=== PATIENT | female | born 1970 | race Caucasian/White ===

== ENCOUNTER 2021-11-27 06:56 | Observation (INO) ==
--- NOTE | 2021-10-26 08:54 | PAT Medication Instructions ---
Medication Instructions Date of Service October 26, 2021 Home Medications apixaban 5 mg tablet (Eliquis) 5 mg PO BID cyanocobalamin (vitamin B-12) 1,000 mcg tablet 1,000 mcg PO QAM hydroxyzine HCl 10 mg tablet 10 mg PO TID PRN lisinopril 10 mg tablet 10 mg PO QAM metoprolol succinate 100 mg tablet,extended release 24 hr 100 mg PO QAM metoprolol succinate 25 mg tablet,extended release 24 hr 25 mg PO QAM omeprazole 40 mg capsule,delayed release 40 mg PO QAM simvastatin 20 mg tablet 20 mg PO HS venlafaxine 150 mg capsule,extended release 24 hr 150 mg PO QAM venlafaxine 37.5 mg tablet,extended release 24 hr 37.5 mg PO QAM ASK your prescriber and surgeon apixaban 5 mg tablet (Eliquis) 5 mg PO BID (in order for spinal anesthesia, Apixaban/Eliquis needs to be stopped 72 hours/3 days before surgery. Please check if okay with doctor that prescribes this to you) DO NOT take the morning of surgery cyanocobalamin (vitamin B-12) 1,000 mcg tablet 1,000 mcg PO QAM hydroxyzine HCl 10 mg tablet 10 mg PO TID PRN lisinopril 10 mg tablet 10 mg PO QAM Take morning of surgery With a small sip of water, OTHERWISE NOTHING TO EAT OR DRINK AFTER MIDNIGHT: metoprolol succinate 100 mg tablet,extended release 24 hr 100 mg PO QAM metoprolol succinate 25 mg tablet,extended release 24 hr 25 mg PO QAM omeprazole 40 mg capsule,delayed release 40 mg PO QAM venlafaxine 150 mg capsule,extended release 24 hr 150 mg PO QAM venlafaxine 37.5 mg tablet,extended release 24 hr 37.5 mg PO QAM Take evening before surgery hydroxyzine HCl 10 mg tablet 10 mg PO TID PRN (if needed) simvastatin 20 mg tablet 20 mg PO HS Other Notes If you have any questions please call us at [phone] or [phone] or [phone] or [phone]
--- NOTE | 2021-10-30 12:19 | Anesthesiology Consultation ---
Date of Service October 30, 2021 Assessment & Plan (1) Encounter for pre-operative examination: - COVID screening: Per assessment on 10/30: No known COVID-19 positive contacts or current COVID-19 related symptoms. Travel screen- returned from travel to [facility] 10/28 (via car with daughter/granddaughter). No large gatherings. Wore mask in public. Preop Covid testing > 2 weeks after return from travel. Surgeon arranging preop COVID testing. Awaiting results. - Eliquis instructions: patient made aware that in order for spinal anesthesia, Eliquis needs to be held 72 hours prior to surgery. Patient voiced und erstanding/will check if okay with prescriber. Chart Review Chart Review: Acceptable Risk for Surgery and Patient seen in Pre Admission Te sting Teaching & Discussion Pre-Anesthesia Teaching/Discussion Notes: Instructed NPO after midnight before surgery,except medications with 15 cc of water. Medication instructions provided according to the PAT guidelines. History Surgery Operation Date: 11/27/21 09:35 Proposed Procedures p Right Total Knee Arthroplasty - Jeffrey Cordon DO Height/Weight Height: 5 ft 4 in Weight: 111.8 kg Allergies Allergy/AdvReac Type Severity Reaction Status Date / Time No Known Allergies Allergy Verified 10/25/21 09:49 Medications Home Medications Medication Instructions Recorded Confirmed Last Taken apixaban 5 mg tablet (Eliquis) 5 mg PO BID 10/25/21 10/25/21 Unknown cyanocobalamin (vitamin B-12) 1,000 mcg PO QAM 10/25/21 10/25/21 Unknown 1,000 mcg tablet hydroxyzine HCl 10 mg tablet 10 mg PO TID PRN 10/25/21 10/25/21 Unknown lisinopril 10 mg tablet 10 mg PO QAM 10/25/21 10/25/21 Unknown metoprolol succinate 100 mg 100 mg PO QA 10/25/21 10/25/21 Unknown tablet,extended release 24 hr metoprolol succinate 25 mg 25 mg PO QA 10/25/21 10/25/21 Unknown tablet,extended release 24 hr omeprazole 40 mg capsule,delayed 40 mg PO QAM 10/25/21 10/25/21 Unknown release simvastatin 20 mg tablet 20 mg PO HS 10/25/21 10/25/21 Unknown venlafaxine 150 mg 150 mg PO QA 10/25/21 10/25/21 Unknown capsule,extended release 24 hr venlafaxine 37.5 mg 37.5 mg PO QAM 10/25/21 10/25/21 Unknown tablet,extended release 24 hr Past Medical History Medical History Anxiety Degenerative disc disease Depression DVT (deep venous thrombosis) LLE (3 years ago), reason for Eliquis, unknown etiology GERD (gastroesophageal reflux disease) Hx of ventricular tachycardia 2009, reason for metoprolol, no current/recent issues Hyperlipidemia Hypertension Morbid obesity Sleep apnea No machine d/t recall Stress incontinence Exercise / Class Metabolic Activity II 4-5 Yardwork/Stairs/Walk up hill (one FS (no CP, no SOB)) Past Family History Family History Uncle Colon cancer Past Surgical History Surgical History History of ankle surgery left History of arthroscopy R/L knees History of cardiac cath 2009 > no stents History of section x3 History of cholecystectomy History of colonoscopy History of hysterectomy History of repair of rotator cuff right History of tonsillectomy History of tooth extraction Hx of fracture of humerus right with repair Past Anesthesia History No Hx of Anesthesia Complications and No Family Hx of Anesthesia Complications History of PONV No Hx of PONV and No Hx of Motion Sickness Social History Smoking Status: Current every day smoker tobacco type: cigarettes Smoking cigarettes per day: 1 PPD x 20+ years Do You Dip or Chew Tobacco: No Hx Alcohol Use: No Hx Substance Use: No substance use type: does not use Review of Systems Patient denies chest pain, shortness of breath, dyspnea on exertion, fever, chills, cough, wheezing, palpitations. Physical Exam Vital Signs VITALS BP 119/78 P 75 TEMP 98.1 SP02 95%RA RESP 16 PHYSICAL Full cervical extension range of motion. Full TMJ range of motion. TMD 4 finger breaths Mallampati Score 3 Dentition: no upper teeth, several missing on lower Lungs: clear throughout to auscultation Cardiac: regular rate and rhythm, no murmurs noted Spine: normal Carotid arteries: negative bruit Extremities: no edema Lab Results Anesthesia Preop Results Results Anesthesia Widget: WBC 9.73 K/uL (4.8-10.8) 10/30/21 Hgb 13.4 g/dL (12.0-16.0) 10/30/21 Hct 40.9 % (37-47) 10/30/21 Plt 325 K/uL (130-400) 10/30/21 Na 138 mmol/L (136-145) 10/30/21 K 3.9 mmol/L (3.5-5.1) 10/30/21 Cl 103 mmol/L (98-107) 10/30/21 CO2 30 mmol/L (21-32) 10/30/21 BUN 9 mg/dl (6-23) 10/30/21 Creat 0.72 mg/dl (0.6-1.2) 10/30/21 Glucose Level 97 mg/dl (70-99(Fasting)) 10/30/21 PT 10.3 Seconds (9.0-12.0) 10/30/21 PTT 27.6 Seconds (21.0-31.0) 10/30/21 INR 1.0 (0.9-1.1) 10/30/21 HA1c 6.4 % (4.5-5.6) H 10/30/21 Urine Color Yellow 10/30/21 Urine Appearance Clear (Clear) 10/30/21 Urine pH 7.0 (4.5-7.5) 10/30/21 Urine Specific [place] 1.011 (1.000-1.030) 10/30/21 Urine Protein Negative (Negative) 10/30/21 Urine Glucose (UA) Negative (Negative) 10/30/21 Urine Ketones Negative (Negative) 10/30/21 Urine Blood Negative (Negative) 10/30/21 Urine Nitrite Negative (Negative) 10/30/21 Urine Bilirubin Negative (Negative) 10/30/21 Urine Urobilinogen Negative (Negative) 10/30/21 Urine Leukocyte Esterase Negative (Negative) 10/30/21 Blood Type O Positive 10/30/21 Antibody Screen NEGATIVE 10/30/21 Testing Electrocardiogram Date: 10/30/21 Findings: + NSR @ (66) Chest X-Ray Date: 10/30/21 FINDINGS: Frontal and lateral radiographs of the chest demonstrate the cardiomediastinal silhouette to be within normal limits. There is a decreased inspiratory effort with elevation of the hemidiaphragms and crowding of the bronchovascular markings at the lung bases and centrally. The lungs are clear of alveolar opacities. There is no evidence for effusion bilaterally. There is no evidence for vascular congestion. There is no acute osseous pathology. IMPRESSION: There is a decreased inspiratory effort with otherwise no acute chest disease.
--- NOTE | 2021-11-06 08:04 | History & Physical Report ---
Date of Service November 06, 2021 date of surgery: 11/27/21 Procedure: Right Total Knee Arthroplasty Surgeon: Jeffrey Cordon Assessment & Plan (1) Arthritis of right knee: Plan: Further care discussed with patient and at this point in time has failed conservative measures and would like to proceed with a right total knee replacement. Plan on discharge will be home with home health physical therapy. DVT prophylaxiswith TEDs, SCDs and will resume Eliquis postop. Patient will have follow up appointment in our office two weeks post op for staple/suture removal and re-evaluation. Patient otherwise has no other questions or concerns. The risks and benefits have been discussed including, but not limited to, risk of infection, nerve injury, stiffness, loss of motion, failure to improve, etc. Reasonable outcomes and options of treatment were discussed. An explanation of appropriate alternatives to the procedure that may be advantageous were discussed and their risks and benefits, as well as the risks and benefits of not proceeding with treatment. I offered to answer any additional inquiries concerning the treatment involved. All the patient's questions were answered. The patient is agreeable, understanding of the treatment plan and alternatives, and wishes to proceed with the treatment plan. History of Present Illness Chief Complaint: Right knee pain Primary Care Provider: NO PCP Kayla is a 51 year old who complains of right knee pain, presents for pre-op evaluation prior to a right total knee replacement by Dr Cordon at [facility]. she complains of pain, decreased range of motion, instability and stiffness in her right knee. Currently the patient states that the symptoms are moderate-severe and is described as aching, sharp and throbbing. Her symptoms are aggravated by ascending stairs, daily activities, first steps while awake walking. Unable to take NSAIDs since she is on Eliquis. she has been treated with previous cortisone and visco injections in the past without much relief. she has also failed previous trial of physical therapy. Allergies Allergy/AdvReac Type Severity Reaction Status Date / Time No Known Allergies Allergy Verified 10/25/21 09:49 Home Medications Medication Instructions Recorded Confirmed Type apixaban 5 mg tablet (Eliquis) 5 mg PO BID 10/25/21 10/25/21 History cyanocobalamin (vitamin B-12) 1,000 mcg PO QAM 10/25/21 10/25/21 History 1,000 mcg tablet hydroxyzine HCl 10 mg tablet 10 mg PO TID PRN 10/25/21 10/25/21 History lisinopril 10 mg tablet 10 mg PO QAM 10/25/21 10/25/21 History metoprolol succinate 100 mg 100 mg PO QAM 10/25/21 10/25/21 History tablet,extended release 24 hr metoprolol succinate 25 mg 25 mg PO QAM 10/25/21 10/25/21 History tablet,extended release 24 hr omeprazole 40 mg capsule,delayed 40 mg PO QAM 10/25/21 10/25/21 History release simvastatin 20 mg tablet 20 mg PO HS 10/25/21 10/25/21 History venlafaxine 150 mg 150 mg PO QAM 10/25/21 10/25/21 History capsule,extended release 24 hr venlafaxine 37.5 mg 37.5 mg PO QAM 10/25/21 10/25/21 History tablet,extended release 24 hr Past Med/Surg History Medical History Anxiety Degenerative disc disease Depression DVT (deep venous thrombosis) LLE (3 years ago), reason for Eliquis, unknown etiology GERD (gastroesophageal reflux disease) Hx of ventricular tachycardia 2009, reason for metoprolol, no current/recent issues Hyperlipidemia Hypertension Morbid obesity Sleep apnea No machine d/t recall Stress incontinence Surgical History History of ankle surgery left History of arthroscopy R/L knees History of cardiac cath 2010 > no stents History of section x3 History of cholecystectomy History of colonoscopy History of hysterectomy History of repair of rotator cuff right History of tonsillectomy History of tooth extraction Hx of fracture of humerus right with repair Family History Uncle Colon cancer Social History Smoking Status: Current every day smoker Cigarettes Per Day: 1 PPD x 20+ years; Second Hand Exposure: No; Hx Alcohol Use: No Hx Substance Use: No Preferred Language: Telugu Communication Ability: Effective Marketing Analytics Specialist Required: No Beliefs That Will Affect Care: None Current Living Situation: Spouse Feels Safe at Home: Yes Assistive Devices: None Review of Systems Review of Systems: All systems reviewed & are unremarkable except as noted in HPI & below Constitutional: no fever, no chills and no sweats Respiratory: no cough and no dyspnea Cardiovascular: no chest pain, no dyspnea and no orthopnea Gastrointestinal: no abdominal pain, no nausea and no vomiting Musculoskeletal: as per Subjective / HPI Physical Exam Physical Exam: HT: 5ft 4in WT: 111.8kg Constitutional: WD/WN, vitals as above no acute distress Respiratory: normal respiratory effort, lungs clear to auscultation no respiratory distress, no labored breathing and does not use accessory muscles Cardiovascular: RRR, no murmur, no edema Gastrointestinal (Abdomen): normal bowel sounds, soft, nontender, no hepatosplenomegaly Musculoskeletal: Knee: + knee abnormal to inspection (Right Knee- ), + effusion (+1 effusion), + limited ROM of knee (ROM 0/3/110), + knee ROM with crepitation, + joint line tenderness (medial joint line) and + Ronald's sign positive; no deformity, no skin erythema, no ecchymosis, no valgus laxity, no varus laxity, anterior drawer test negative, Nelson's sign negative and pivot shift test negative Results & Data Results & Data ([facility]) Diagnostic Findings Right Knee X-ray: Right knee series showing degenerative changes to the right knee, narrowing of the joint spaces with patellar spurring noted, findings showing joint space narrowing, osteophyte formation and subchondral sclerosis noted. no acute bony pathology noted.
[~2021-11-27 06:56] MED LIST: ACETAMINOPHEN 500 MG TAB PO SCH; BUPIVACAINE 0.5 % 5 MG/1 ML PF 10ML VIAL ONE; CeleBREX 200 MG CAP PO SCH; FAMOTIDINE 20 MG TAB PO SCH; GABAPENTIN 900 MG DOSE PO SCH; LR 500ML BOLUS, THEN 15ML/HR IV SCH; METOCLOPRAMIDE HCL 10 MG TABLET PO SCH; ROPIVACAINE 0.5% 5 MG/ML 30 ML VIAL ONE; ROPIVACAINE 0.5% HCL/PF 150 MG, BUPIVACAINE 0.75% MPF 20 ML, EPINEPHrine 30MG/30ML (OR ... INFIL SCH; TRANEXAMIC ACID 1,000 MG **IV Intra-op IV SCH; TRANEXAMIC ACID 1,000 MG **IV Pre-op IV SCH; ceFAZolin 2000MG 2,000 MG/15 ML SYR IV SCH; dexAMETHasone 4 MG TAB PO SCH
[2021-11-27] MEDS ORDERED: MIDAZOLAM HCL 1 MG/ML 2ML VIAL ONE (07:51)
[2021-11-27] MEDS ORDERED: PROPOFOL IV EMULSION 10 MG/ML 20 ML VIAL IV ONE ×4 (07:51→10:27)
[2021-11-27] MEDS ORDERED: fentaNYL citrate 100 MCG/2 ML VIAL ONE (07:51)
--- NOTE | 2021-11-27 09:07 | History & Physical Bridge Note ---
Date of Service November 27, 2021 History & Physical Bridge Note I have examined the patient, reviewed the History & Physical and in the interval since the performance of the History & Physical I have noted the following changes of clinical significance: no changes noted
[2021-11-27] MEDS ORDERED: KETOROLAC 30 MG/ML VIAL IV PRN (09:39)
[2021-11-27] MEDS ORDERED: ATROPINE SULFATE 0.1 MG/ML 10ML SYR IV PRN (09:39)
[2021-11-27] MEDS ORDERED: ePHEDrine sulfate 50 MG/ML AMP IV PRN (09:39)
[2021-11-27] MEDS ORDERED: ONDANSETRON INJ 2 MG/ML 2 ML VIAL IV PRN ×2 (09:39→13:26)
[2021-11-27] MEDS ORDERED: HYDROmorphone INJ 1 MG/ML SYRINGE IV PRN ×2 (09:39→13:26)
[2021-11-27] MEDS ORDERED: ORTHO JOINT ANESTHETIC ONE (10:05)
[2021-11-27] MEDS ORDERED: PHENYLEPHRINE HCL 10 MG/ML VIAL ONE (10:38)
--- NOTE | 2021-11-27 11:22 | Operative Report ---
Post Operative Report Pre & Post Diagnosis Operation Date: 11/27/21 09:35 Pre-Op Diagnosis: Arthritis of right knee Severe DJD right knee Severe DJD right knee Postop severe DJD right knee I identified the patient and participated in the time-out.: Yes Procedure Operation Date: 11/27/21 09:35 Actual Procedures p Right Total Knee Arthroplasty(Right) utilizing Na Biomet persona TKA size femur 8 narrow tibia D polyten patella 28 oval Jeffrey Cordon DO Surgeon Jeffrey Cordon DO Box Bender CESAR Loving Estimated Blood Loss 5 Findings Consistent with Post-Op Diagnosis Patient presents with severe end-stage tricompartmental degenerative joint disease right knee for right total knee arthroplasty patient's failed times a conservative management clinic physical therapy anti-inflammatories relative rest activity modification corticosteroid injection viscosupplementation the above intraoperative findings were noted severe end-stage DJD with varus alignment subchondral cystic changes marginal osteophytes Specimens Bone and cartilage Drains Medium bore Hemovac Anesthesia Type MAC Spinal Regional Complications none Disposition Accompanied Patient To Recovery: No Disposition: Recovery Room Indications Patient presents for total knee arthroplasty after failed attempted conservative management clinic physical therapy anti-inflammatories relative rest activity modification corticosteroid injection viscosupplementation Description of Procedure After proper prepping and draping of the Right lower extremity anterior midline incision was made over the region of the extensor extensor mechanism after meticulous hemostasis was obtained and maintained in subcutaneous tissues a medial parapatellar incision was made The patella was subluxed lateralward the medial lateral gutter were cleaned from any hypertrophic synovitis and scar tissue of the distal femoral block was placed and the distal femoral osteotomy cut was made subsequently the chamfers anterior and posterior osteotomy cuts were made utilizing the 4-in-1 block the tibia was subsequently subluxed anteriorward medial and ateral meniscal remnants were excised in their entirety remnants of the anterior and posterior cruciate ligaments were excised in their entirety excellent exposure of the proximal tibia was obtained the tibial osteotomy guide was placed on the proximal tibial osteotomy cut was made once again the knee was irrigated with copious amounts of sterile saline solution the patella was subsequently everted lateralward thickened scar tissue around the patella was removed the patella was subsequently cut utilizing a freehand technique and was drilled prepared for final preparation and placement of patella socially flexion-extension gaps were checked and the equal and symmetric trials were placed to the appropriate femoral and tibial trials with poly-spacer being placed for equal flexion and extension gaps and full range of motion including extension to 0 and flexion to 140 the trial components after having been taken to recovery range of motion was subsequently removed meticulous hemostasis was obtained and maintained subsequently a knee block injection of joint cocktail including ropivacaine 0.5% 150 mg. Bupivacaine 0.5% epinephrine 1-200,030 mL's toradol 30 mg dexamethasone 4 mg ketamine 10 mg clonidine 100 micrograms normal saline solution 30 mg was infiltrated into the soft tissues of the posterior knee medial lateral gutters and periosteal synovium special attention was paid to protect neurovascular structures at all times subsequently trial components having been removed the knee was irrigated with sterile saline solution. debris was removed the proximal tibia was subsequently prepared and was made ready for the placement of the tibial component tibial component was also cemented and tamped into position the femoral component was subsequently placed and cemented in the position the patellar component was subsequently cemented in position because hemostasis once again obtained and maintained wound having been thoroughly irrigated with debridement and debridement lavage was performed as well as a medial parapatellar incision closed with #1 Vicryl in interrupted fashion subcutaneous was closed with #2 Vicryl skin was closed with skin clips. PA-C was necessary for prepping and drapping as well as wound closure of deep fascia Sub cutaneous tissue and skin and was necessary for the case. A sterile compressive dressing was placed patient was taken to recovery in stable condition of report dictated by Bravo I attest to the content of the Intraoperative Record and any orders documented therein. Any exceptions are noted below.Due to the complex nature of the proced ure, the entire surgery was performed with the operational assistance of CESAR Loving. The outreach assistant, under direct supervision, was involved in the actual performance of all aspects of the surgical procedure including hemostasis, tissue retraction and incision, instrument management, patient positioning, and wound closure. I attest to the content of the Intraoperative Record and any orders documented therein. Any exceptions are noted below.
--- NOTE | 2021-11-27 12:27 | XRay Report ---
XR knee RT 1 or 2V routine CLINICAL HISTORY: Surgical Post Op TECHNIQUE: 2 views of the right knee were obtained. Comparison: None available at the time of this dictation. FINDINGS: Postoperative changes are seen of placement of total knee arthroplasty. Soft tissue swelling and subc utaneous emphysema are seen. IMPRESSION: Expected postoperative appearance status post placement of total knee arthroplasty. ACT 112: Negative or not required by law. Electronically signed by: Fredrick Hollins M.D. 11/27/2021 12:26 PM
[2021-11-27] MEDS ORDERED: hydrOXYzine HCl 10 MG TAB PO PRN (13:26)
[2021-11-27] MEDS ORDERED: diphenhydrAMINE Capsule 25 MG CAP PO PRN (13:26)
[2021-11-27] MEDS ORDERED: MAGNESIUM HYDROXIDE SUSP 30 ML UDC PO PRN (13:26)
[2021-11-27] MEDS ORDERED: bisacodyL 10 MG SUPP PR PRN (13:26)
[2021-11-27] MEDS ORDERED: NALOXONE HCL 0.4 MG/1 ML VIAL/CARP IV PRN (13:26)
[2021-11-27] MEDS ORDERED: METOCLOPRAMIDE HCL INJ 5 MG/ML 2 ML VIAL IV PRN (13:26)
--- NOTE | 2021-11-27 14:22 | Anesthesiology Progress Note ---
Date of Service November 27, 2021 Anesthesia Post Procedure Vital Signs Vital Signs: Temp Pulse Pulse Resp BP Pulse Ox 11/27/21 14:13 75 16 105/71 94 11/27/21 13:10 36.5 C 68 16 101/67 97 11/27/21 12:50 36.4 C L 68 20 107/55 L 98 11/27/21 12:35 69 15 106/66 96 11/27/21 12:25 36.2 C L 67 15 104/60 98 11/27/21 12:15 62 14 102/63 100 11/27/21 12:05 61 15 108/77 100 11/27/21 11:56 36 C L 60 14 114/72 100 11/27/21 07:17 37.1 C 66 18 153/80 H 97 Pain Intensity Right Knee: Pain Intensity: 3 Transfer of Care Handoff Completed per policy Notes Mental Status: alert / awake / arousable Patient Amnestic to Procedure: Yes Nausea / Vomiting: adequately controlled Pain: adequately controlled Airway Patency, RR, SpO2: stable & adequate BP & HR: stable & adequate Hydration State: stable & adequate Neuraxial Anesthesia: was administered and sensory block is resolving Anesthetic Complications: no major complications apparent
[2021-11-27] MEDS: ACETAMINOPHEN 500 MG TAB PO SCH ×2 (15:10→21:38)
[2021-11-27] MEDS: ceFAZolin 2000MG 2,000 MG/15 ML SYR IV SCH (17:56)
[2021-11-27] MEDS: SODIUM CHLORIDE 0.9% 1000ML 1,000 ML IV SCH (17:57)
[2021-11-27] MEDS: oxyCODONE HCL IR 5 MG TAB (IMMEDIATE RELEASE) PO PRN (19:23)
[2021-11-27] MEDS: SIMVASTATIN 20 MG TAB PO SCH (20:44)
[2021-11-27] MEDS: SENNA 8.6 MG TAB PO SCH (20:44)
[2021-11-27] MEDS: DOCUSATE SODIUM 100 MG CAP PO SCH (20:44)
[2021-11-28] MEDS: ceFAZolin 2000MG 2,000 MG/15 ML SYR IV SCH (01:29)
[2021-11-28] MEDS: oxyCODONE HCL IR 5 MG TAB (IMMEDIATE RELEASE) PO PRN ×4 (01:37→21:41)
[2021-11-28] MEDS: SODIUM CHLORIDE 0.9% 1000ML 1,000 ML IV SCH (02:43)
[2021-11-28] MEDS: ACETAMINOPHEN 500 MG TAB PO SCH ×3 (05:45→21:41)
[2021-11-28 06:53] LABS: Hematocrit (blood only) 36.4 % (37-47); Mean Corpuscular Hemoglobin 27.1 pg (25-34); Mean Corpuscular Volume 82.2 fL (80-100); Mean Platelet Volume 10.1 fL (7.4-10.4); Platelet Count 303 K/uL (130-400); RDW Standard Deviation 42.1 fL (36.4-46.3); Red Blood Count 4.43 M/uL (4.2-5.4); White Blood Count 15.26 K/uL (4.8-10.8)
[2021-11-28 07:16] LABS: BUN Creatinine Ratio 14.9 (10-20); Calcium 8.9 mg/dl (8.5-10.1); Creatinine Clr Calc Pharmacy 106.6 ml/min; Est GFR (African American) 107.2 ml/min; Est GFR (Non-African American) 92.5 ml/min; Potassium 4.2 mmol/L (3.5-5.1)
[2021-11-28] MEDS: VENLAFAXINE HCL XR 37.5 MG CAPXR PO SCH (08:29)
[2021-11-28] MEDS: METOPROLOL SUCC 50MG EXT REL TAB PO SCH (08:29)
[2021-11-28] MEDS: VENLAFAXINE HCL XR 150 MG CAPXR PO SCH (08:29)
[2021-11-28] MEDS: MULTIVITAMIN TAB PO SCH (08:29)
[2021-11-28] MEDS: DOCUSATE SODIUM 100 MG CAP PO SCH ×2 (08:30→21:41)
[2021-11-28] MEDS: CYANOCOBALAMIN (B-12) 500 MCG TABLET PO SCH (08:30)
[2021-11-28] MEDS: APIXABAN 5 MG TABLET PO SCH ×2 (08:30→21:42)
[2021-11-28] MEDS: lisinopril 10 MG TAB PO SCH ×2 (08:30→11:27)
[2021-11-28] MEDS: METOPROLOL SUCC 25MG EXT REL TAB PO SCH (08:31)
--- NOTE | 2021-11-28 08:48 | Orthopedic Progress Note ---
Date of Service November 28, 2021 Assessment & Plan (1) Arthritis of right knee: Plan: Postop day 1 status post right total knee arthroplasty PT/OT protocols. Weightbearing as tolerated. DVT prophylaxis-apixaban p.o. twice daily, SCDs, JAIRO nguyen. Pain management as written. DC planning-patient is planning for home health services upon discharge. We will plan to recheck the patient later this morning to see how her physical therapy went. Possible discharge to home today. Admission and Anticipated Discharge Date Admission Date: November 27, 2021 Subjective Postop day 1 Patient sitting up in her bed eating breakfast. States she is having pain off and on but tolerating well. No other complaints. Physical Exam Physical Exam: Dressings are clean, dry, and intact. Calves are soft and nontender. Neurovascular is intact. Toes are mobile. She has good dorsiflexion and plantarflexion of the right foot. Hemovac drainage was 60 mL from the previous shift. Results & Data ([facility]) Vital Signs (Past 12 Hours) Vital Signs Temp Pulse Resp BP Pulse Ox 11/28/21 06:02 36.6 C 62 18 101/62 98 11/28/21 03:54 36.4 C L 63 16 96/62 L 96 11/27/21 22:05 37.1 C 64 16 96/63 L 95 Laboratory Results Laboratory Results WBC 15.26 K/uL (4.8-10.8) H 11/28/21 06:24 RBC 4.43 M/uL (4.2-5.4) 11/28/21 06:24 Hgb 12.0 g/dL (12.0-16.0) 11/28/21 06:24 Hct 36.4 % (37-47) L 11/28/21 06:24 MCV 82.2 fL (80-100) 11/28/21 06:24 MCH 27.1 pg (25-34) 11/28/21 06:24 MCHC 33.0 g/dL (32-36) 11/28/21 06:24 RDW Std Deviation 42.1 fL (36.4-46.3) 11/28/21 06:24 RDW Coeff of Ernesto 14.0 % (11.5-14.5) 11/28/21 06:24 Plt Count 303 K/uL (130-400) 11/28/21 06:24 MPV 10.1 fL (7.4-10.4) 11/28/21 06:24 Sodium 137 mmol/L (136-145) 11/28/21 06:24 Potassium 4.2 mmol/L (3.5-5.1) 11/28/21 06:24 Chloride 105 mmol/L (98-107) 11/28/21 06:24 Carbon Dioxide 27 mmol/L (21-32) 11/28/21 06:24 Anion Gap 5 (3-11) 11/28/21 06:24 BUN 11 mg/dl (6-23) 11/28/21 06:24 Creatinine 0.74 mg/dl (0.6-1.2) 11/28/21 06:24 Est Cr Clr Drug Dosing 106.6 ml/min 11/28/21 06:24 Est GFR ( Amer) 107.2 ml/min 11/28/21 06:24 Est GFR (Non-Af Amer) 92.5 ml/min 11/28/21 06:24 BUN/Creatinine Ratio 14.9 (10-20) 11/28/21 06:24 Glucose 131 mg/dl (70-99(Fasting)) H 11/28/21 06:24 Calcium 8.9 mg/dl (8.5-10.1) 11/28/21 06:24 SARS-CoV-2, RNA, NAAT NEGATIVE (NEGATIVE) 11/27/21 06:13 Impressions Knee X-Ray 11/27/21 12:00 XR knee RT 1 or 2V routine CLINICAL HISTORY: Surgical Post Op TECHNIQUE: 2 views of the right knee were obtained. Comparison: None available at the time of this dictation. FINDINGS: Postoperative changes are seen of placement of total knee arthroplasty. Soft tissue swelling and subcutaneous emphysema are seen. IMPRESSION: Expected postoperative appearance status post placement of total knee arthroplasty. ACT 112: Negative or not required by law. Electronically signed by: Fredrick Hollins M.D. 11/27/2021 12:26 PM
[2021-11-28] MEDS ORDERED: KETOROLAC 30 MG/ML VIAL IV SCH (12:00)
[2021-11-28] MEDS: KETOROLAC TROMETHAMINE 15 MG/ML VIAL IV SCH (18:04)
[2021-11-28] MEDS: SENNA 8.6 MG TAB PO SCH (21:41)
[2021-11-28] MEDS: SIMVASTATIN 20 MG TAB PO SCH (21:42)
[2021-11-29] MEDS: KETOROLAC TROMETHAMINE 15 MG/ML VIAL IV SCH ×3 (00:56→13:05)
[2021-11-29] MEDS: oxyCODONE HCL IR 5 MG TAB (IMMEDIATE RELEASE) PO PRN ×2 (04:42→10:15)
[2021-11-29] MEDS: ACETAMINOPHEN 500 MG TAB PO SCH (05:26)
[2021-11-29] MEDS: METOPROLOL SUCC 50MG EXT REL TAB PO SCH (07:44)
[2021-11-29] MEDS: METOPROLOL SUCC 25MG EXT REL TAB PO SCH (07:45)
[2021-11-29] MEDS: VENLAFAXINE HCL XR 150 MG CAPXR PO SCH (07:50)
[2021-11-29] MEDS: CYANOCOBALAMIN (B-12) 500 MCG TABLET PO SCH (07:50)
[2021-11-29] MEDS: DOCUSATE SODIUM 100 MG CAP PO SCH (07:50)
[2021-11-29] MEDS: MULTIVITAMIN TAB PO SCH (07:50)
[2021-11-29] MEDS: APIXABAN 5 MG TABLET PO SCH (07:51)
[2021-11-29] MEDS: lisinopril 10 MG TAB PO SCH (07:51)
[2021-11-29] MEDS: VENLAFAXINE HCL XR 37.5 MG CAPXR PO SCH (07:51)
--- NOTE | 2021-11-29 07:53 | Orthopedic Progress Note ---
Date of Service November 29, 2021 Assessment & Plan (1) Arthritis of right knee: Plan: Postop day 2 status post right total knee arthroplasty PT/OT protocols. Weightbearing as tolerated. DVT prophylaxis-apixaban p.o. twice daily, SCDs, JAIRO nguyen. Pain management as written. DC planning-patient is planning for home health services upon discharge. Plan for discharge to home today. Admission and Anticipated Discharge Date Admission Date: November 28, 2021 Subjective Postop day 2 Patient sleeping upon entering room. Easily awoken. States she had a much better night. She was able to sleep through the night. Her pain control is much better today. Overall she is feeling much better. She is hoping to go home today. Physical Exam Physical Exam: Jasmeet dressing is clean, dry, and intact. Neurovascular is intact. Toes are mobile. Calves are soft and nontender. Results & Data ([facility]) Vital Signs (Past 12 Hours) Vital Signs Temp Pulse Resp BP Pulse Ox 11/29/21 07:42 36.6 C 53 L 16 122/74 93 11/28/21 23:17 36.6 C 60 18 112/75 97
--- NOTE | 2021-11-29 12:28 | Discharge Summary ---
Date of Service date of discharge: November 29, 2021 date of admission: 11/27/21 Admission HPI Per Admitting Provider Kayla is a 51 year old who complains of right knee pain, presents for pre-op evaluation prior to a right total knee replacement by Dr Cordon at [facility]. she complains of pain, decreased range of motion, instability and stiffness in her right knee. Currently the patient states that the symptoms are moderate-severe and is described as aching, sharp and throbbing. Her symptoms are aggravated by ascending stairs, daily activities, first steps while awake walking. Unable to take NSAIDs since she is on Eliquis. she has been treated with previous cortisone and visco injections in the past without much relief. she has also failed previous trial of physical therapy. Principal Diagnosis right knee arthritis Discharge Exam Vital Signs Temp Pulse Resp BP Pulse Ox 11/29/21 07:42 36.6 C 53 L 16 122/74 93 11/28/21 23:17 36.6 C 60 18 112/75 97 11/28/21 15:28 36.9 C 68 18 106/70 97 11/28/21 13:27 98 Intake and Output 11/28/21 11/29/21 11/29/21 22:59 06:59 14:59 Intake Total 720 / 1440 Output Total 30 / 580 50 / 580 Balance 690 / 860 -50 / 860 Intake: Oral 720 / 1440 Output: Drain Output 30 / 180 50 / 180 Right Knee Hemovac 30 / 180 50 / 180 Other: # Unmeasured Voids 2 1 Musculoskeletal right knee: NVDI, calf SNT, negative navneet sign. DP palpable, able to wiggle toes/ankle movement without difficulty. PRANAV dressing clean dry and intact. expected post-operative bruising noted. Discharge Data Allergies Allergy/AdvReac Type Severity Reaction Status Date / Time No Known Allergies Allergy Verified 11/27/21 07:15 Procedures Performed Operation Date: 11/27/21 09:35 Actual Procedures p Right Total Knee Arthroplasty(Right) - Jeffrey Cordon DO Ordered Studies 11/27/21 05:00 US - OR guided needle placemen Routine Hospital Course (1) Arthritis of right knee: Postop day 2 status post right total knee arthroplasty PT/OT protocols. Weightbearing as tolerated. DVT prophylaxis-apixaban p.o. twice daily, SCDs, JAIRO hose. Pain management as written. DC planning-patient is planning for home health services upon discharge. Plan for discharge to home today. Total Time Total Time Spent Total Time Spent (In Minutes): 20 Discharge Plan Discharge Items Patient Disposition: Home - Home Health Services Reason For Visit: Osteoarthritis Knee Right Discharge Diagnosis: RIGHT TOTAL KNEE REPLACEMENT Activity: Per Instructions section Lifting: Wait until after follow-up appointment Weightbearing: Right weightbearing Weightbearing Comment: WBAT WITH WALKER Non-emergency contact: Surgeon Call non-emergency contact if: you have any medication questions, your pain is not controlled, your temperature is above 101, your wound has increased redness, your wound has increased drainage and your wound pain has increased Follow-up/Referrals: Washington Garvey [Primary Care Provider] - Diet: Regular Addtl Attending Provider Instructions: ACTIVITY RECOMMENDATIONS: SELF CARE INSTRUCTIONS AFTER TOTAL KNEE REPLACEMENT A. You may need to continue a physical therapy program after discharge from the hospital. There are several options available to you. Your doctor will assist you in selecting the best one for you. 1. An out-patient facility 2 to 3 times a week for therapy or home therapy. 2. Continue working on all exercises taught to you in the hospital. Your goals should be to increase bending of your knee to 90 degrees and beyond and to fully straighten your knee. B. You may progress at your own pace from walking with a walker or crutches to a cane; then to no assistive devices. C. Make walking a part of your daily routine. Be up as much as comfortable with rest periods throughout the day. Rest with leg elevation is very important. Use the ice wrap frequently for the first 3-4 weeks. D. There are no restrictions on activities. You may ride in a car, shop, participate in restrooms or lounges maid and all social activities. E. Wear the long elastic stockings (JAIRO hose) 20 hours a day for 2 weeks after surgery. They can be removed several times a day for laundering and for a bath. F. You may shower, no tub baths until cleared by your doctor. SPECIAL CARE INSTRUCTIONS: VERY IMPORTANT TO READ AND REVIEW A. There are a few signs you need to watch for after you are home. Call [facility] if you notice any of the followin. Increased severe knee pain. Some pain is expected especially when you exercise. 2. Increased swelling in your leg or knee; pain or swelling of the calf muscle in either lower leg. 3. Any fluid drainage from the incision. 4. Shortness of breath or chest pain. B. Please call [facility] at if you have any concerns or questions about your operation or recovery. The doctor or his nurse will return your call promptly. C. You must take antibiotics before dental work, bladder, bowel or other surgery. Your doctor will provide you with a permanent care to carry describing this precaution. IMPORTANT: * REMEMBER TO TAKE ASPIRIN, 81 MG, TWICE DAILY FOR 4 WEEKS UNLESS OTHERWISE DIRECTED. THIS IS YOUR BLOOD THINNER. * HIGH RISK PATIENTS MAY BE PRESCRIBED A STRONGER BLOOD THINNER. THIS WILL BE PROVIDED AT DISCHARGE. * CALL IF INCREASED PAIN, REDNESS, DRAINAGE OR FEVER GREATER THAT 101. * WEAR JAIRO HOSE 20 HOURS PER DAY FOR 2 WEEKS. * PRANAV Dressing- This is a large suction dressing covering your incision. This will help pull any excess drainage from the wound and allow your incision to heal properly. You may shower with this if you can keep the unit outside of the shower. If any bleeding or leakage is noted please call your doctor's office. This will remain on your incision for 7 days and then should be removed. This can be done yourself or by the home nursing staff if applicable. The entire unit is disposable once removed. Once removed, keep incision clean and dry. If redness or drainage is noted, please call your surgeon. ONCE PRANAV IS REMOVED, FOLLOW THESE INSTRUCTIONS: DERMABOND Prineo- This is a mesh tape dressing that is covered with glue. It should remain in place until the incision is properly healed, usually 10-14 days. This dressing is designed to naturally slough off. You may trim the excess mesh tape as it peels off. Incision may be briefly wet in a shower. Dry immediately by blotting with a clean, dry towel. Do not bath or swim until instructed by your doctor. Do not scratch, rub, or pick at the dressing. Do not apply any topical ointments or lotions until dressing is completely removed and/or instructed by your doctor. There may be a small piece of suture material at one end of your incision. Do n ot pull or trim this. If it is bothersome or catching on clothing, you may cover it with a band-aid. IF INCISION IS LEAKING THROUGH DRESSING, CALL THE OFFICE . FOLLOW UP VISIT: If appointment is not already scheduled: Please call [facility] to make a follow-up appointment for 2 weeks after your surgery at . Pending Studies at Discharge: No Stand-Alone Forms: [facility], Smoking Cessation Medications and DC Order Prescriptions: New acetaminophen [Tylenol Extra Strength] 500 mg Tablet 1,000 mg PO Q8 14 Days Qty: 84 RF: 0 polyethylene glycol 3350 [Miralax] 17 gram powder in packet 17 g PO DAILY PRN (Reason: constipation) Qty: 5 RF: 0 cefadroxil 500 mg capsule 500 mg PO BID Qty: 28 RF: 1 oxycodone 5 mg Tablet 5 mg PO Q4H MDD 6 PRN (Reason: pain) Qty: 30 RF: 0 Continued metoprolol succinate 100 mg Tablet Extended Release 24 Hr 100 mg PO QAM RF: 0 venlafaxine 150 mg Capsule,Extended Release 24hr 150 mg PO QAM RF: 0 cyanocobalamin (vitamin B-12) 1,000 mcg Tablet 1,000 mcg PO QAM RF: 0 omeprazole 40 mg Capsule,Delayed Release(Dr/Ec) 40 mg PO QAM RF: 0 simvastatin 20 mg Tablet 20 mg PO HS RF: 0 lisinopril 10 mg Tablet 10 mg PO QAM RF: 0 metoprolol succinate 25 mg Tablet Extended Release 24 Hr 25 mg PO QAM RF: 0 hydroxyzine HCl 10 mg Tablet 10 mg PO TID PRN (Reason: Anxiety) RF: 0 venlafaxine 37.5 mg Tablet Extended Release 24hr 37.5 mg PO QAM RF: 0 Eliquis 5 mg Tablet 5 mg PO BID RF: 0 Discharge Orders: Discharge Order (Routine); Ordered 11/29/21 Ordered By: Nic Huynh Admission Data Admit Date/Time: 11/28/21 12:15 Attending Provider: Jeffrey Cordon Admit Provider: Jeffrey Cordon Primary Care Provider: Washington Garvey
== END 2021-11-29 13:24 | disposition home health service (06) | DRG 470 ==
LOC: ASU 06:56 → 3E 06:56 → INTOOBSV 12:00

== ENCOUNTER 2022-04-24 08:37 | Observation (INO) ==
--- NOTE | 2022-03-20 14:44 | PAT Medication Instructions ---
Medication Instructions Date of Service March 20, 2022 Home Medications apixaban 5 mg tablet (Eliquis) 5 mg PO BID cyanocobalamin (vitamin B-12) 1,000 mcg tablet 1,000 mcg PO QAM lisinopril 10 mg tablet 10 mg PO QAM metoprolol succinate 100 mg tablet,extended release 24 hr 100 mg PO QAM metoprolol succinate 25 mg tablet,extended release 24 hr 25 mg PO QAM omeprazole 40 mg capsule,delayed release 40 mg PO BID simvastatin 20 mg tablet 20 mg PO HS venlafaxine 150 mg capsule,extended release 24 hr 150 mg PO QAM venlafaxine 37.5 mg tablet,extended release 24 hr 37.5 mg PO QAM hydroxyzine HCl 25 mg tablet 25 - 50 mg PO HS PRN polyethylene glycol 3350 17 gram oral powder packet (Miralax) 17 g PO QAM PRN ASK your prescriber and surgeon apixaban 5 mg tablet (Eliquis) 5 mg PO BID(in order for spinal or epidural anesthesia, Eliquis needs to be stopped 72 hours/3 days before surgery. Please check if okay with doctor that prescribes this to you) DO NOT take the morning of surgery cyanocobalamin (vitamin B-12) 1,000 mcg tablet 1,000 mcg PO QAM lisinopril 10 mg tablet 10 mg PO QAM polyethylene glycol 3350 17 gram oral powder packet (Miralax) 17 g PO QAM PRN Take morning of surgery With a small sip of water, OTHERWISE NOTHING TO EAT OR DRINK AFTER MIDNIGHT: metoprolol succinate 100 mg tablet,extended release 24 hr 100 mg PO QAM metoprolol succinate 25 mg tablet,extended release 24 hr 25 mg PO QAM omeprazole 40 mg capsule,delayed release 40 mg PO BID venlafaxine 150 mg capsule,extended release 24 hr 150 mg PO QAM venlafaxine 37.5 mg tablet,extended release 24 hr 37.5 mg PO QAM Take evening before surgery omeprazole 40 mg capsule,delayed release 40 mg PO BID simvastatin 20 mg tablet 20 mg PO HS hydroxyzine HCl 25 mg tablet 25 - 50 mg PO HS PRN(if needed) Other Notes If you have any questions please call us at [phone] or [phone] or [phone] or [phone]
--- NOTE | 2022-03-25 13:29 | Anesthesiology Consultation ---
Date of Service March 25, 2022 Assessment & Plan (1) Encounter for pre-operative examination: - COVID screening: Per assessment on 03/25: No known COVID-19 positive contacts or current COVID-19 related symptoms. Travel screen negative. At surgeon discretion if preop Covid testing being done. - S/P Right TKA (11/27/21): SAB at L3-4 (x1 attempt) + PNB at [facility]. No issues noted per post-op anesthesia progress note. - Outpatient joint assessment: Pt currently scheduled for inpatient pathway. If surgeon requests review for outpatient joint pathway, patient is not recommended candidate for outpatient joint program from anesthesia standpoint. -Eliquis instructions: patient made aware that in order for spinal anesthesia, Eliquis needs to be held 72 hours prior to surgery. Patient voiced understanding/will check if okay with prescriber. - Patient acceptable risk for surgery pending surgeon-ordered PCP preop evaluation (Dr. Garvey, scheduled 04/01) Chart Review Chart Review: Patient seen in Pre Admission Testing Teaching & Discussion Pre-Anesthesia Teaching/Discussion Notes: Instructed NPO after midnight before surgery,except medications with 15 cc of water. Medication instructions provided according to the PAT guidelines. History Surgery Operation Date: 04/24/22 07:15 Proposed Procedures p Left Total Knee Arthroplasty - Jeffrey Cordon DO Height/Weight Height: 5 ft 4 in Weight: 107.6 kg Allergies Allergy/AdvReac Type Severity Reaction Status Date / Time No Known Allergies Allergy Verified 03/20/22 12:32 Medications Home Medications Medication Instructions Recorded Confirmed Last Taken apixaban 5 mg tablet (Eliquis) 5 mg PO BID 10/25/21 03/20/22 11/23/21 cyanocobalamin (vitamin B-12) 1,000 mcg PO QAM 10/25/21 03/20/22 11/26/21 08:00 1,000 mcg tablet lisinopril 10 mg tablet 10 mg PO QAM 10/25/21 03/20/22 11/26/21 08:00 metoprolol succinate 100 mg 100 mg PO QAM 10/25/21 03/20/22 11/27/21 05:30 tablet,extended release 24 hr metoprolol succinate 25 mg 25 mg PO QAM 10/25/21 03/20/22 11/27/21 05:30 tablet,extended release 24 hr omeprazole 40 mg capsule,delayed 40 mg PO BID 10/25/21 03/20/22 11/27/21 05:30 release simvastatin 20 mg tablet 20 mg PO HS 10/25/21 03/20/22 11/26/21 20:00 venlafaxine 150 mg 150 mg PO QAM 10/25/21 03/20/22 11/27/21 05:30 capsule,extended release 24 hr venlafaxine 37.5 mg 37.5 mg PO QAM 10/25/21 03/20/22 11/27/21 05:30 tablet,extended release 24 hr hydroxyzine HCl 25 mg tablet 25 - 50 mg PO HS PRN Sleep 03/20/22 03/20/22 Unknown polyethylene glycol 3350 17 gram 17 g PO QAM PRN constipation 03/20/22 03/20/22 Unknown oral powder packet (Miralax) Past Medical History Medical History Anxiety Degenerative disc disease Depression DVT (deep venous thrombosis) LLE (3 years ago), reason for Eliquis, unknown etiology GERD (gastroesophageal reflux disease) Hx of ventricular tachycardia 2009, reason for metoprolol, no current/recent issues Hyperlipidemia Hypertension Morbid obesity Sleep apnea No machine d/t recall Stress incontinence Exercise / Class Metabolic Activity III < 4 Walking/Shop/Light housework (one FS (no CP, occasional SOB)) Past Family History Family History Uncle Colon cancer Past Surgical History Surgical History History of ankle surgery left History of arthroscopy R/L knees History of cardiac cath 2009 > no stents>[facility] History of section x3 History of cholecystectomy History of colonoscopy History of hysterectomy History of repair of rotator cuff right History of tonsillectomy History of tooth extraction History of total right knee replacement Right TKA (11/27/21): SAB at L3-4 (x1 attempt) + PNB at [facility]. No issues noted per post-op anesthesia progress note. Hx of fracture of humerus right with repair Past Anesthesia History No Hx of Anesthesia Complications and No Family Hx of Anesthesia Complications History of PONV No Hx of PONV and No Hx of Motion Sickness Social History Smoking Status: Current every day smoker tobacco type: cigarettes Smoking cigarettes per day: 20 cigs/day Do You Dip or Chew Tobacco: No Hx Alcohol Use: Yes Alcohol type: beer alcohol intake frequency: a few times a month Hx Substance Use: No substance use type: does not use Review of Systems Patient denies chest pain, shortness of breath, fever, chills, cough, wheezing, palpitations. Physical Exam Vital Signs VITALS BP 101/62 P 65 TEMP 98.0 SP02 98%RA RESP 16 PHYSICAL Full cervical extension range of motion. Full TMJ range of motion. TMD 4 finger breaths Mallampati Score 3 Dentition: no teeth on upper Lungs: clear throughout to auscultation Cardiac: regular rate and rhythm, no murmurs noted Spine: normal Carotid arteries: negative bruit Extremities: no edema Thick neck Lab Results Anesthesia Preop Results Results Anesthesia Widget: WBC 8.29 K/ul (4.8-10.8) 03/25/22 Hgb 14.1 g/dl (12.0-16.0) 03/25/22 Hct 43.4 % (34.1-44.9) 03/25/22 Plt 315 K/uL (130-400) 03/25/22 Na 139 mmol/L (136-145) 03/25/22 K 3.7 mmol/L (3.5-5.1) 03/25/22 Cl 102 mmol/L (98-107) 03/25/22 CO2 27 mmol/L (21-32) 03/25/22 BUN 9 mg/dl (6-23) 03/25/22 Creat 0.84 mg/dl (0.6-1.2) 03/25/22 Glucose Level 161 mg/dl (70-99(Fasting)) H 03/25/22 PT 10.9 Seconds (9.0-12.0) 03/25/22 PTT 28.2 Seconds (21.0-31.0) 03/25/22 INR 1.0 (0.9-1.1) 03/25/22 HA1c 6.5 % (4.5-5.6) H 03/25/22 Urine Color Yellow 03/25/22 Urine Appearance Clear (Clear) 03/25/22 Urine pH 7.0 (4.5-7.5) 03/25/22 Urine Specific [place] 1.009 (1.000-1.030) 03/25/22 Urine Protein Negative (Negative) 03/25/22 Urine Glucose (UA) Negative (Negative) 03/25/22 Urine Ketones Negative (Negative) 03/25/22 Urine Blood Negative (Negative) 03/25/22 Urine Nitrite Negative (Negative) 03/25/22 Urine Bilirubin Negative (Negative) 03/25/22 Urine Urobilinogen Negative (Negative) 03/25/22 Urine Leukocyte Esterase Negative (Negative) 03/25/22 Blood Type O Positive 03/25/22 Antibody Screen NEGATIVE 03/25/22 Testing Electrocardiogram Date: 10/30/21 Findings: + NSR @ (66) Chest X-Ray Date: 10/30/21 FINDINGS: Frontal and lateral radiographs of the chest demonstrate the cardiomediastinal silhouette to be within normal limits. There is a decreased inspiratory effort with elevation of the hemidiaphragms and crowding of the bronchovascular markings at the lung bases and centrally. The lungs are clear of alveolar opacities. There is no evidence for effusion bilaterally. There is no evidence for vascular congestion. There is no acute osseous pathology. IMPRESSION: There is a decreased inspiratory effort with otherwise no acute chest disease. COVID-19 Risk Screen Screening Information COVID-19 Screen Date: 03/25/22 Exposure 21 Days Family/Household +COVID Last 21 Days: No Exposure 10 Days Any COVID Exposure Last 10 Days: No Symptoms Last 10 Days Experienced COVID Sx Last 10 Days: No + COVID 0-90 Days COVID + in Last 0-90 Days: No
--- NOTE | 2022-04-04 11:03 | History & Physical Report ---
Date of Service April 04, 2022 date of surgery: 04/24/22 Procedure: Left Total Knee Arthroplasty Surgeon: Jeffrey Cordon Assessment & Plan (1) Arthritis of knee, left: Plan: Presents for evaluation of chronic left knee pain, x-rays show degenerative change of the left knee with joint space narrowing osteophyte formation subchondral sclerosis large patellar spur noted. She has tried and failed conservative measures including previous injections as well as oral anti- inflammatories and Tylenol. This point time she would like to proceed with a patient matched Na left total knee replacement, we will plan to keep her overnight at the hospital. We will plan on in-home physical therapy for 2 weeks and then transition outpatient physical therapy. Resume her Eliquis post op. The risks and benefits have been discussed including, but not limited to, risk of infection, nerve injury, stiffness, loss of motion, failure to improve, etc. Reasonable outcomes and options of treatment were discussed. An explanation of appropriate alternatives to the procedure that may be advantageous were discussed and their risks and benefits, as well as the risks and benefits of not proceeding with treatment. I offered to answer any additional inquiries concerning the treatment involved. All the patient's questions were answered. The patient is agreeable, understanding of the treatment plan and alternatives, and wishes to proceed with the treatment plan. History of Present Illness Chief Complaint: left knee pain Primary Care Provider: Washington Garza is a 51 year old who complains of left knee pain, presents for pre-op evaluation prior to a left total knee replacement by Dr Cordon at [facility]. she comp lains of pain, stiffness and instability in her left knee. Currently the patient states that the symptoms are moderate-severe and is described as aching, sharp and throbbing. rates her current pain as 6/10. Her symptoms are aggravated by ascending stairs, daily activities, first steps while awake walking. Unable to take NSAIDs since she is on Eliquis. she has been treated with previous cortisone and visco injections in the past without much relief. she has also failed previous trial of physical therapy. Allergies Allergy/AdvReac Type Severity Reaction Status Date / Time No Known Allergies Allergy Verified 03/20/22 12:32 Home Medications Medication Instructions Recorded Confirmed Type apixaban 5 mg tablet (Eliquis) 5 mg PO BID 10/25/21 03/20/22 History cyanocobalamin (vitamin B-12) 1,000 mcg PO QAM 10/25/21 03/20/22 History 1,000 mcg tablet lisinopril 10 mg tablet 10 mg PO QAM 10/25/21 03/20/22 History metoprolol succinate 100 mg 100 mg PO QAM 10/25/21 03/20/22 History tablet,extended release 24 hr metoprolol succinate 25 mg 25 mg PO QAM 10/25/21 03/20/22 History tablet,extended release 24 hr omeprazole 40 mg capsule,delayed 40 mg PO BID 10/25/21 03/20/22 History release simvastatin 20 mg tablet 20 mg PO HS 10/25/21 03/20/22 History venlafaxine 150 mg 150 mg PO QAM 10/25/21 03/20/22 History capsule,extended release 24 hr venlafaxine 37.5 mg 37.5 mg PO QAM 10/25/21 03/20/22 History tablet,extended release 24 hr hydroxyzine HCl 25 mg tablet 25 - 50 mg PO HS PRN Sleep 03/20/22 03/20/22 History polyethylene glycol 3350 17 gram 17 g PO QAM PRN constipation 03/20/22 03/20/22 History oral powder packet (Miralax) Past Med/Surg History Medical History Anxiety Degenerative disc disease Depression DVT (deep venous thrombosis) LLE (3 years ago), reason for Eliquis, unknown etiology GERD (gastroesophageal reflux disease) Hx of ventricular tachycardia 2009, reason for metoprolol, no current/recent issues Hyperlipidemia Hypertension Morbid obesity Sleep apnea No machine d/t recall Stress incontinence Surgical History History of ankle surgery left History of arthroscopy R/L knees History of cardiac cath 2010 > no stents>[facility] History of section x3 History of cholecystectomy History of colonoscopy History of hysterectomy History of repair of rotator cuff right History of tonsillectomy History of tooth extraction History of total right knee replacement Right TKA (11/27/21): SAB at L3-4 (x1 attempt) + PNB at [facility]. No issues noted per post-op anesthesia progress note. Hx of fracture of humerus right with repair Family History Uncle Colon cancer Social History Smoking Status: Current every day smoker Cigarettes Per Day: 20 cigs/day; Second Hand Exposure: Yes (as a child, and currently); Hx Alcohol Use: Yes Alcohol type: beer Hx Substance Use: No Preferred Language: Danish Communication Ability: Effective Hanger Off Required: No Beliefs That Will Affect Care: None marital status: Current Living Situation: Spouse Feels Safe at Home: Yes Assistive Devices: None Review of Systems Review of Systems: All systems reviewed & are unremarkable except as noted in HPI & below Constitutional: no fever, no chills and no sweats Respiratory: no cough and no dyspnea Cardiovascular: no chest pain, no dyspnea and no orthopnea Gastrointestinal: no abdominal pain, no nausea and no vomiting Musculoskeletal: as per Subjective / HPI Physical Exam Physical Exam: HT: 5ft 4in WT: 107.6kg Constitutional: WD/WN, vitals as above no acute distress Respiratory: normal respiratory effort, lungs clear to auscultation no respiratory distress, no labored breathing and does not use accessory muscles Cardiovascular: RRR, no murmur, no edema Gastrointestinal (Abdomen): normal bowel sounds, soft, nontender, no hepatosplenomegaly Musculoskeletal: Knee: + knee abnormal to inspection (LEFT KNEE: ), + effusion (+1 effusion), + limited ROM of knee (ROM 0/3/110), + knee ROM with crepitation, + joint line tenderness (medial joint line) and + Ronald's sign positive; no deformity, no skin erythema, no ecchymosis, no valgus laxity, no varus laxity, anterior drawer test negative, Nelson's sign negative and pivot shift test negative Results & Data Results & Data ([facility]) Diagnostic Findings Left Knee X-ray: left knee series confirm advanced degenerative changes to the left knee, greatest medial compartments and patellofemoral joint, showing joint space narrowing, osteophyte formation and subchondral sclerosis. no acute bony pathology noted.
[~2022-04-24 08:37] MED LIST changes: -ROPIVACAINE 0.5% HCL/PF 150 MG, BUPIVACAINE 0.75% MPF 20 ML, EPINEPHrine 30MG/30ML (OR ... INFIL SCH; +ROPIVACAINE 0.5% HCL/PF 150 MG, BUPIVACAINE 0.75% MPF 20 ML, EPINEPHrine 30MG/30ML (OR ... INSTIL SCH
--- NOTE | 2022-04-24 08:49 | History & Physical Bridge Note ---
Date of Service April 24, 2022 History & Physical Bridge Note I have examined the patient, reviewed the History & Physical and in the interval since the performance of the History & Physical I have noted the following changes of clinical significance: no changes noted
[2022-04-24] MEDS ORDERED: GLYCOPYRROLATE 0.2 MG/ML VIAL ONE (09:57)
[2022-04-24] MEDS ORDERED: LIDOCAINE 2% MPF LOCAL 5 ML VIAL INFIL ONE (09:57)
[2022-04-24] MEDS ORDERED: ONDANSETRON INJ 2 MG/ML 2 ML VIAL ONE (09:57)
[2022-04-24] MEDS ORDERED: MIDAZOLAM HCL 1 MG/ML 2ML VIAL ONE (09:57)
[2022-04-24] MEDS ORDERED: PROPOFOL IV EMULSION 10 MG/ML 20 ML VIAL IV ONE (09:57)
[2022-04-24] MEDS ORDERED: KETAMINE 50 MG/5 ML SYRINGE ONE (09:57)
[2022-04-24] MEDS ORDERED: ORTHO JOINT ANESTHETIC ONE (11:26)
[2022-04-24] MEDS ORDERED: PHENYLEPHRINE 100MCG/ML 5ML SYR IV PRN (11:36)
[2022-04-24] MEDS ORDERED: KETOROLAC 30 MG/ML VIAL IV PRN (11:36)
[2022-04-24] MEDS ORDERED: ATROPINE SULFATE 0.1 MG/ML 10ML SYR IV PRN (11:36)
[2022-04-24] MEDS ORDERED: HYDROmorphone INJ 1 MG/ML SYRINGE IV PRN (11:36)
[2022-04-24] MEDS ORDERED: ONDANSETRON INJ 2 MG/ML 2 ML VIAL IV PRN ×2 (11:36→15:24)
[2022-04-24] MEDS ORDERED: PHENYLEPHRINE HCL 10 MG/ML VIAL ONE (12:03)
--- NOTE | 2022-04-24 12:55 | Operative Report ---
Post Operative Report Pre & Post Diagnosis Operation Date: 04/24/22 11:10 Pre-Op Diagnosis: Arthritis of Left Knee Post-Op Diagnosis: Arthritis of Left Knee I identified the patient and participated in the time-out.: Yes Procedure Operation Date: 04/24/22 11:10 Actual Procedures p Left Total Knee Arthroplasty(Left) utilizing Na Biomet persona patient matched size femur 7 narrow tibia D polyeleven medial constrained patella 28 oval- Jeffrey Cordon DO Surgeon Jeffrey Cordon DO Appliquer Nic GUERRERO Estimated Blood Loss 5 Findings Consistent with Post-Op Diagnosis Patient presents with severe end-stage tricompartmental DJD left knee no response to conservative management for left total knee arthroplasty patient failed attempted conservative treatment patient has eburnated [id number] m arginal osteophytes subchondral sclerosis subchondral cystic changes Specimens Bone and cartilage Drains Medium bore Hemovac Anesthesia Type MAC Spinal Regional Complications none Disposition Accompanied Patient To Recovery: No Disposition: Recovery Room Indications Patient presents after failed attempted conservative management including corticosteroid injection viscosupplementation relative rest activity modification patient's recent undergone right total knee arthroplasty successfully presents today for left total knee arthroplasty Description of Procedure After proper prepping and draping of the left lower extremity anterior midline incision was made over the region of the extensor extensor mechanism after meticulous hemostasis was obtained and maintained in subcutaneous tissues a medial parapatellar incision was made The patella was subluxed lateralward the medial lateral gutter were cleaned from any hypertrophic synovitis and scar tissue of the distal femoral block was placed and the distal femoral osteotomy cut was made subsequently the chamfers anterior and posterior osteotomy cuts were made utilizing the 4-in-1 block the tibia was subsequently subluxed anteriorward medial and ateral meniscal remnants were excised in their entirety remnants of the anterior and posterior cruciate ligaments were excised in their entirety excellent exposure of the proximal tibia was obtained the tibial osteotomy guide was placed on the proximal tibial osteotomy cut was made once again the knee was irrigated with copious amounts of sterile saline solution the patella was subsequently everted lateralward thickened scar tissue around the patella was removed the patella was subsequently cut utilizing a freehand technique and was drilled prepared for final preparation and placement of patella socially flexion-extension gaps were checked and the equal and symmetric trials were placed to the appropriate femoral and tibial trials with poly-spacer being placed for equal flexion and extension gaps and full range of motion including extension to 0 and flexion to 140 the trial components after having been taken to recovery range of motion was subsequently removed meticulous hemostasis was obtained and maintained subsequently a knee block injection of joint cocktail including ropivacaine 0.5% 150 mg. Bupivacaine 0.5% epinephrine 1-200,030 mL's toradol 30 mg dexamethasone 4 mg ketamine 10 mg clonidine 100 micrograms normal saline solution 30 mg was infiltrated into the soft tissues of the posterior knee medial lateral gutters and periosteal synovium special attention was paid to protect neurovascular structures at all times subsequently trial components having been removed the knee was irrigated with sterile saline solution. debris was removed the proximal tibia was subsequently prepared and was made ready for the placement of the tibial component tibial component was also cemented and tamped into position the femoral component was subsequently placed and cemented in the position the patellar component was subsequently cemented in position because hemostasis once again obtained and maintained wound having been thoroughly irrigated with debridement and debridement lavage was performed as well as a medial parapatellar incision closed with #1 Vicryl in interrupted fashion subcutaneous was closed with #2 Vicryl skin was closed with skin clips. PA-C was necessary for prepping and drapping as well as wound closure of deep fascia Sub cutaneous tissue and skin and was necessary for the case. A sterile compressive dressing was placed patient was taken to recovery in stable condition of report dictated by Bravo I attest to the content of the Intraoperative Record and any orders documented therein. Any exceptions are noted below.Due to the complex nature of the procedure, the entire surgery was performed with the operational assistance of Nic GUERRERO. the instructional support assistant, under direct supervision, was involved in the actual performance of all aspects of the surgical procedure including hemostasis, tissue retraction and incision, instrument management, patient positioning, and wound closure. I attest to the content of the Intraoperative Record and any orders documented therein. Any exceptions are noted below.
--- NOTE | 2022-04-24 14:25 | XRay Report ---
XR knee LT 1 or 2V routine CLINICAL HISTORY: Surgical Post Op TECHNIQUE: 2 views of the right knee were obtained. Comparison: None available at the time of this dictation. FINDINGS: Patient is status post total knee arthroplasty with expected postsurgical changes including soft tiss ue swelling and subcutaneous emphysema. No periarticular lucency or hardware fracture is seen. IMPRESSION: Expected postoperative appearance status post placement of total knee arthroplasty. ACT 112: Negative or not required by law. Electronically signed by: Fredrick Hollins M.D. 04/24/2022 2:24 PM
--- NOTE | 2022-04-24 14:28 | Anesthesiology Progress Note ---
Date of Service April 24, 2022 Anesthesia Post Procedure Vital Signs Vital Signs: Temp Pulse Pulse Resp BP Pulse Ox O2 Del Method 04/24/22 14:20 36.7 C 68 15 90/66 L 94 Room Air 04/24/22 14:10 76 15 107/65 91 Room Air 04/24/22 14:00 69 13 105/66 96 Room Air 04/24/22 13:50 76 19 99/64 L 97 Room Air 04/24/22 13:43 37.2 C 76 14 91/58 L 98 Oxymask 04/24/22 09:15 36.8 C 72 20 125/90 97 Room Air O2 Flow Rate 04/24/22 14:20 04/24/22 14:10 04/24/22 14:00 04/24/22 13:50 04/24/22 13:43 5 04/24/22 09:15 Pain Intensity Lower Back: Pain Intensity: 3 Transfer of Care Handoff Completed per policy Notes Mental Status: alert / awake / arousable Patient Amnestic to Procedure: Yes Nausea / Vomiting: adequately controlled Pain: adequately controlled Airway Patency, RR, SpO2: stable & adequate BP & HR: stable & adequate Hydration State: stable & adequate Neuraxial Anesthesia: was administered and sensory block is resolving Anesthetic Complications: no major complications apparent
[2022-04-24] MEDS ORDERED: bisacodyL 10 MG SUPP PR PRN (15:24)
[2022-04-24] MEDS ORDERED: diphenhydrAMINE 50 MG/ML VIAL IV PRN (15:24)
[2022-04-24] MEDS ORDERED: SODIUM CHLORIDE 0.9% 1000ML 1,000 ML IV SCH (15:24)
[2022-04-24] MEDS ORDERED: MAGNESIUM HYDROXIDE SUSP 30 ML UDC PO PRN (15:24)
[2022-04-24] MEDS ORDERED: NALOXONE HCL 0.4 MG/1 ML VIAL/CARP IV PRN (15:24)
[2022-04-24] MEDS: ACETAMINOPHEN 500 MG TAB PO SCH ×2 (15:55→22:25)
--- NOTE | 2022-04-24 15:56 | Hospitalist Consultation ---
Date of Consultation April 24, 2022 Assessment & Plan (1) Status post total left knee replacement: - POD#0, no immediate complications - Resume Eliquis 5mg BID as prescribed which will provide adequate DVT ppx - WB status, pain control, and drain management as per primary orthopedic service - Bowel regimen - PT/OT eval when cleared to participate - CM for d/c planning and arrangement of home health - Recommend incentive spirometer use q1h wa for atelectasis/pna prevention - Cap fluids as she is tolerating PO - Labs ordered for tomorrow AM including CBC, BMP, mag (2) History of deep vein thrombosis (DVT) of lower extremity: - H/o of this 3 years ago, unprovoked - No hypercoag testing performed to patient's knowledge - Would consider further discussion with PCP if this medication needs to be continued beyond the 14 days that is recommend for DVT ppx in the immediate post op setting (3) Hypertension: w/ remote history of Vtach in 2009 - [facility] in 2009, no stents or evidence of obstructive/nonobstructive CAD - Currently on Metoprolol Succinate and Lisinopril - Can continue Toprol XL 125mg daily and will hold Lisinopril POD#1 in setting of spinal anesthesia, resume POD#2 (4) Hyperlipidemia: - Continue Simvastatin (5) Morbid obesity: - Strongly encourage weight loss - Ha1c 6.5% indicates prediabetes, could consider starting Metformin, defer to PCP (6) GERD (gastroesophageal reflux disease): - Continue Omeprazole (7) Depression: Mixed depression and anxiety - Continue Venlafaxine Plan Thank you for allowing us to participate in the care of your patient, will continue to follow peripherally but feel free to contact if any acute needs should arise while she remains in house. Above plan of care has been d/w Dr. Meyer who has also seen and evaluated this patient and agrees with aforementioned. Supervising Physician Co-Signing Physician Notes I personally saw and examined the patient. I verified all nunez points and agree with Betsy Donato PA-C with the following exceptions and/or additions: HS1+2, no murmurs, Chest CTAB, Abdo SNT A/P HTN - recommend holding lisinopril until sBP > 120. If blood pressure does not improve recommend holding until follow up with PCP. Metoprolol should be continued. Restless leg syndrome - Low MCV. Start ferrous sulfate 325mg PO every other day. Follow up with PCP for this. T2DM - suggested discussing GLP-1 with her PCP as her is also on this and may help her with weight loss. Hx DVT - Agree with Eliquis for DVT prophylaxis Thank you for the consult, we will sign off at this time but will review morning labs once available. Please contact the [facility] Hospitalist semiconductor assembler for any questions or concerns. History of Present Illness Reason for Consultation: post op medical management Requesting Physician: Dr. Cordon Attending Physician: Jeffrey Cordon, DO History of Present Illness Kayla Jackson is a 51 yo WF with a pmhx of a remote unprovoked LLE DVT years ago who remains on anticoagulation (Eliquis), depression, anxiety, GERD, HTN, HLD, DEANN, and tobacco use who was admitted under Dr. Cordon' service for elective L TKA due to OA that has failed to respond to conservative measures. Patient was taken to the OR today where she received spinal anesthesia. She was medicated perioperatively with pain cocktail, txa, prophylactic antibiotics, fluids, and regional block. She is currently seen in her hospital room and reports no complaints. Denies c/o chest pain, dyspnea, n/v/d, f/c, headache, or uncontrolled knee pain. She underwent elective R TKA in November 2021 without any complications. She lives at home with her in a 2 story home, she plans to return home when medically cleared and will arrange a first floor set up. Hospitalists were asked to see in consult for routine post operative medical management. Allergies Allergy/AdvReac Type Severity Reaction Status Date / Time No Known Allergies Allergy Verified 04/24/22 09:07 Home Medications Medication Instructions Recorded Confirmed Type apixaban 5 mg tablet (Eliquis) 5 mg PO BID 10/25/21 04/24/22 History cyanocobalamin (vitamin B-12) 1,000 mcg PO QAM 10/25/21 04/24/22 History 1,000 mcg tablet lisinopril 10 mg tablet 10 mg PO QAM 10/25/21 04/24/22 History metoprolol succinate 100 mg 100 mg PO QAM 10/25/21 04/24/22 History tablet,extended release 24 hr metoprolol succinate 25 mg 25 mg PO QAM 10/25/21 04/24/22 History tablet,extended release 24 hr omeprazole 40 mg capsule,delayed 40 mg PO BID 10/25/21 04/24/22 History release simvastatin 20 mg tablet 20 mg PO HS 10/25/21 04/24/22 History venlafaxine 150 mg 150 mg PO QAM 10/25/21 04/24/22 History capsule,extended release 24 hr venlafaxine 37.5 mg 37.5 mg PO QAM 10/25/21 04/24/22 History tablet,extended release 24 hr hydroxyzine HCl 25 mg tablet 25 - 50 mg PO HS PRN Sleep 03/20/22 04/24/22 History polyethylene glycol 3350 17 gram 17 g PO QAM PRN constipation 03/20/22 04/24/22 History oral powder packet (Miralax) acetaminophen 500 mg tablet 1,000 mg PO Q8 21 days #126 tabs 04/24/22 Rx (Tylenol Extra Strength) cefadroxil 500 mg capsule 500 mg PO BID 14 days #28 caps 04/24/22 Rx docusate sodium 100 mg capsule 100 mg PO BID 10 days #20 caps 04/24/22 Rx oxycodone 5 mg tablet 5 - 10 mg PO Q6H PRN pain #30 tabs 04/24/22 Rx ferrous sulfate 324 mg (65 mg 324 mg PO Q OTHER DAY #30 tabs 04/25/22 Rx iron) tablet,delayed release Patient History Medical History (Updated 04/24/22 @ 16:30 by Betsy Donato PA-C) Anxiety Degenerative disc disease Depression DVT (deep venous thrombosis) LLE (3 years ago), reason for Eliquis, unknown etiology GERD (gastroesophageal reflux disease) Hx of ventricular tachycardia 2009, reason for metoprolol, no current/recent issues Hyperlipidemia Hypertension Morbid obesity Sleep apnea No machine d/t recall Stress incontinence Surgical History (Updated 04/24/22 @ 16:30 by Betsy Donato PA-C) History of ankle surgery left History of arthroscopy R/L knees History of cardiac cath 2009 > no stents>[facility] History of section x3 History of cholecystectomy History of colonoscopy History of hysterectomy History of repair of rotator cuff right History of tonsillectomy History of tooth extraction History of total right knee replacement Right TKA (11/27/21): SAB at L3-4 (x1 attempt) + PNB at [facility]. No issues noted per post-op anesthesia progress note. Hx of fracture of humerus right with repair Family History Uncle Colon cancer Social History Smoking Status: Current every day smoker Cigarettes Per Day: 20 cigs/day; Second Hand Exposure: Yes (as a child, and currently); Do You Dip or Chew Tobacco: No; Tobacco Cessation Education Requested by Patient: No Hx Alcohol Use: Yes Alcohol type: beer Hx Substance Use: No Preferred Language: Faroese Communication Ability: Effective Top Coater Required: No Beliefs That Will Affect Care: None marital status: Current Living Situation: Spouse Current Living Situation Comment: 4 steps to enter home then a one floor setup Other Information That Helps Us Care for You: No Feels Safe at Home: Yes Safety Concerns: Feels Safe At This Time Assistive Devices: Cane and Walker Review of Systems Review of Systems: All systems reviewed and are unremarkable except as noted in HPI and below. Denies fever, chills, fatigue, headache, nasal congestion, sore throat, cough, chest pain, shortness of breath, palpitations, orthopnea, PND, abdominal pain, n/v/d, constipation, dysuria, hematuria, frequency, back pain, joint pain or swelling, easy bruising or bleeding, skin lesions or rashes. Physical Exam Physical Exam: GENERAL: 51 yo Well-developed, well-nourished obese WF. NAD. EYES: EOMI. PERRLA. Anicteric. HENT: Moist mucous membranes. No scleral icterus. No cervical lymphadenopathy. LUNGS: Clear to auscultation bilaterally. No accessory muscle use. No W/R/R. CARDIOVASCULAR: Regular rate and rhythm. No M/G/R. No JVD. ABDOMEN: Soft, non-tender and non-distended. No palpable masses. Bowel sounds normoactive x 4 quad. EXTREMITIES: No edema. Non-tender. Peripheral pulses +2/4. Left knee dressed with obvious harley dressing and wrapped in leatha. Hemovac tubing visualized. NV intact. No calf tenderness. NEUROLOGIC: A&O x3. No focal neurological deficits. CN II-XII grossly intact. PSYCHIATRIC: Cooperative. Appropriate mood and affect. SKIN: Warm, dry, intact. No rashes or lesions. Results & Data Results & Data ([facility]) Vital Signs (Past 12 Hours) Vital Signs Temp Pulse Pulse Resp BP Pulse Ox O2 Del Method 04/24/22 15:38 37.0 C 86 18 102/65 94 Room Air 04/24/22 15:10 81 14 105/65 97 Nasal Cannula 04/24/22 14:40 81 17 98/65 L 94 Nasal Cannula 04/24/22 14:30 74 16 90/66 L 94 Nasal Cannula 04/24/22 14:20 36.7 C 68 15 90/66 L 94 Room Air 04/24/22 14:10 76 15 107/65 91 Room Air 04/24/22 14:00 69 13 105/66 96 Room Air 04/24/22 13:50 76 19 99/64 L 97 Room Air 04/24/22 13:43 37.2 C 76 14 91/58 L 98 Oxymask 04/24/22 09:15 36.8 C 72 20 125/90 97 Room Air O2 Flow Rate 04/24/22 15:38 04/24/22 15:10 2 04/24/22 14:40 2 04/24/22 14:30 2 04/24/22 14:20 04/24/22 14:10 04/24/22 14:00 04/24/22 13:50 04/24/22 13:43 5 04/24/22 09:15 Laboratory Results Review of preop bloodwork dated 03/25 wbc=8.29, hgb=14.1, hct=43.4, ues=356 CMP within normal limits, ha1c 6.5%, COVID neg pre op cxr not on chart EKG from 10/2021 demonstrates NSR w/o ST abnormalities, rate 66, no updated one for review PG Care Time/CCT Total # of Minutes Spent Total Time Spent with Patient: Total time spent is greater than 50% in coordination of care (as documented) at patient's floor/unit and/or counseling patient: Coding Level of Care Code 01713 Office/OBS Consult Lvl 3 Diagnoses Status post total left knee replacement Z96.652 History of deep vein thrombosis (DVT) of lower extremity Z86.718 Hypertension I10 Hyperlipidemia E78.5 Morbid obesity E66.01 GERD (gastroesophageal reflux disease) K21.9 Depression F32.A
[2022-04-24] MEDS: SENNA 8.6 MG TAB PO SCH (20:37)
[2022-04-24] MEDS: DOCUSATE SODIUM 100 MG CAP PO SCH (20:39)
[2022-04-24] MEDS: PANTOprazole 40 MG TAB PO SCH (20:39)
[2022-04-24] MEDS: oxyCODONE HCL IR 5 MG TAB (IMMEDIATE RELEASE) PO PRN (20:40)
[2022-04-24] MEDS: SIMVASTATIN 20 MG TAB PO SCH (20:40)
[2022-04-24] MEDS: ceFAZolin 2000MG 2,000 MG/15 ML SYR IV SCH (20:42)
[2022-04-24] MEDS ORDERED: GLUCOSE 40% GEL 15 GM TUBE PO PRN (20:53)
[2022-04-24] MEDS ORDERED: GLUCOSE 10 TAB/TUBE PO PRN (20:53)
[2022-04-24] MEDS ORDERED: GLUCAGON FOR INJ 1 MG VIAL SQ PRN (20:53)
[2022-04-24] MEDS ORDERED: DEXTROSE 50% 50 ML SYRINGE IV PRN (20:53)
[2022-04-24] MEDS ORDERED: CARBOHYDRATES FOR HYPOGLYCEMIA PO PRN (20:53)
[2022-04-24] MEDS: INSULIN ASPART PER UNIT SC SCH (22:23)
[2022-04-24] MEDS: HYDROmorphone INJ 0.5 MG/0.5 ML SYR IV PRN (22:27)
[2022-04-25] MEDS: HYDROmorphone INJ 0.5 MG/0.5 ML SYR IV PRN ×2 (04:17→16:27)
[2022-04-25] MEDS: ceFAZolin 2000MG 2,000 MG/15 ML SYR IV SCH (04:39)
[2022-04-25] MEDS: ACETAMINOPHEN 500 MG TAB PO SCH ×3 (06:00→22:51)
--- NOTE | 2022-04-25 06:49 | Orthopedic Progress Note ---
Date of Service April 25, 2022 Assessment & Plan (1) Status post total left knee replacement: Plan: POD #1 s/p left TKA pt/ot dvt proph with JAIRO/SCD/Eliquis plan for d/c home with HHPT, recheck after PT Admission and Anticipated Discharge Date Admission Date: April 24, 2022 Supervising Physician Co-Signing Physician Notes Patient seen and examined. Agree with CESAR Ratliff's note as above. Upon entering the room, the patient was asleep and appeared to be resting comfortably. When awakened, she is says that her knee is "terrible", but does not seem in any distress. She states she was walking in the hallway today with physical therapy. We will plan to keep her another night for pain control issues. L ikely discharge tomorrow. Subjective POD #1 s/p Left TKA Review of Systems Constitutional: no fever, no chills and no sweats Respiratory: no cough and no dyspnea Cardiovascular: no chest pain and no dyspnea Gastrointestinal: no abdominal pain, no nausea and no vomiting Physical Exam Physical Exam: Vital Signs Temp 36.9 C 04/25/22 04:00 Pulse 69 04/25/22 04:00 Resp 18 04/25/22 04:00 BP 95/59 L 04/25/22 04:00 Pulse Ox 93 04/25/22 04:00 O2 Del Method 04/25/22 04:00 O2 Flow Rate 2 04/24/22 15:10 Intake & Output 04/24/22 04/24/22 04/25/22 06:59 18:59 06:59 Intake Total 1713.333 / 1713.33 3 Output Total 505 / 1480 975 / 1480 Balance 1208.333 / 233.333 -975 / 233.333 Weight 106.594 kg Intake: IV 313.333 / 313.333 Lactated Ringe r's 1,000 ml @ 15 0 / 0 mls/hr IV .Q24 H [facility] Rx#: [id number] Sodium Chlorid e 0.9% 1000ML 1, 113.333 / 113.333 000 ml @ 100 m ls/hr IV .Q10H [facility] Rx#:[id number] Tranexamic Aci d / 0.7% NaCl 1, 200 / 200 000 mg In 100 ml @ 600 mls/hr IV TODAY@0600 SK[facility] Rx#:[id number] IV Perioperative 1400 / 1400 Output: Urine 500 / 1200 700 / 1200 Estimated Blood Loss 5 / 5 Drain Output 0 / 275 275 / 275 Left Knee 150 / 150 Left Knee Hemo vac 0 / 125 125 / 125 Other: Weight Measureme nt Method Estimated by Ga ram Musculoskeletal: Left Leg: NVDI, calf SNT, negative navneet sign. DP palpable, able to wiggle toes/ankle movement without difficulty. dressing clean dry and intact. Results & Data ([facility]) Vital Signs (Past 12 Hours) Vital Signs Temp Pulse Resp BP BP Pulse Ox O2 Del Method 04/25/22 04:00 36.9 C 69 18 95/59 L 93 Room Air 04/25/22 00:47 36.7 C 77 18 110/67 92 Room Air 04/24/22 23:04 36.8 C 78 18 101/64 93 Room Air Laboratory Results Laboratory Results POC Glucose 134 mg/dl (70-99) H 04/24/22 22:22 SARS-CoV-2, RNA, NAAT NEGATIVE (NEGATIVE) 04/24/22 Unknown Blood Type O Positive 04/24/22 09:02 Antibody Screen NEGATIVE 04/24/22 09:02 Impressions Knee X-Ray 04/24/22 13:59 XR knee LT 1 or 2V routine CLINICAL HISTORY: Surgical Post Op TECHNIQUE: 2 views of the right knee were obtained. Comparison: None available at the time of this dictation. FINDINGS: Patient is status post total knee arthroplasty with expected postsurgical changes including soft tissue swelling and subcutaneous emphysema. No periarticular lucency or hardware fracture is seen. IMPRESSION: Expected postoperative appearance status post placement of total knee arthroplasty. ACT 112: Negative or not required by law. Electronically signed by: Fredrick Hollins M.D. 04/24/2022 2:24 PM
[2022-04-25 07:27] LABS: Hematocrit (blood only) 36.2 % (34.1-44.9); Hemoglobin 11.9 g/dl (12.0-16.0); Mean Corpuscular Hemoglobin 25.9 pg (25.0-34.0); Mean Corpuscular Hgb Conc 32.9 g/dL (32.0-36.0); Mean Corpuscular Volume 78.7 fL (80.0-100.0); Mean Platelet Volume 10.1 fL (9.4-12.3); Platelet Count 283 K/uL (130-400); RDW Coefficient of Variation 15.5 % (11.5-14.5); RDW Standard Deviation 43.8 fL (36.4-46.3); White Blood Count 16.43 K/ul (4.8-10.8)
[2022-04-25 07:55] LABS: BUN Creatinine Ratio 18.8 (10-20); Calcium 9.1 mg/dl (8.5-10.1); Creatinine Clr Calc Pharmacy 91.2 ml/min; Est GFR (African American) 90.7 ml/min; Est GFR (Non-African American) 78.2 ml/min; Magnesium 1.9 mg/dl (1.7-2.4); Potassium 4.4 mmol/L (3.5-5.1)
[2022-04-25] MEDS: INSULIN ASPART PER UNIT SC SCH ×4 (08:26→21:14)
[2022-04-25] MEDS: oxyCODONE HCL IR 5 MG TAB (IMMEDIATE RELEASE) PO PRN ×4 (08:30→21:27)
[2022-04-25] MEDS: VENLAFAXINE HCL XR 37.5 MG CAPXR PO SCH (08:30)
[2022-04-25] MEDS: CYANOCOBALAMIN (B-12) 500 MCG TABLET PO SCH (08:31)
[2022-04-25] MEDS: PANTOprazole 40 MG TAB PO SCH ×2 (08:31→20:12)
[2022-04-25] MEDS: MULTIVITAMIN TAB PO SCH (08:31)
[2022-04-25] MEDS: DOCUSATE SODIUM 100 MG CAP PO SCH ×2 (08:31→20:12)
[2022-04-25] MEDS: APIXABAN 5 MG TABLET PO SCH ×2 (08:31→20:12)
[2022-04-25] MEDS: VENLAFAXINE HCL XR 150 MG CAPXR PO SCH (08:35)
[2022-04-25] MEDS ORDERED: lisinopril 10 MG TAB PO SCH (09:00)
[2022-04-25] MEDS: METOPROLOL SUCC 25MG EXT REL TAB PO SCH (10:40)
[2022-04-25] MEDS: METOPROLOL SUCC 50MG EXT REL TAB PO SCH (10:40)
[2022-04-25] MEDS: SENNA 8.6 MG TAB PO SCH (20:11)
[2022-04-25] MEDS: SIMVASTATIN 20 MG TAB PO SCH (20:12)
[2022-04-26] MEDS: oxyCODONE HCL IR 5 MG TAB (IMMEDIATE RELEASE) PO PRN ×4 (03:25→17:27)
[2022-04-26] MEDS: ACETAMINOPHEN 500 MG TAB PO SCH ×3 (06:04→21:22)
[2022-04-26 08:16] LABS: Hematocrit (blood only) 33.8 % (34.1-44.9); Hemoglobin 11.1 g/dl (12.0-16.0); Mean Corpuscular Hemoglobin 26.2 pg (25.0-34.0); Mean Corpuscular Hgb Conc 32.8 g/dL (32.0-36.0); Mean Corpuscular Volume 79.9 fL (80.0-100.0); Mean Platelet Volume 10.3 fL (9.4-12.3); Platelet Count 250 K/uL (130-400); RDW Coefficient of Variation 15.5 % (11.5-14.5); Red Blood Count 4.23 M/uL (3.93-5.22); White Blood Count 10.19 K/ul (4.8-10.8)
[2022-04-26] MEDS: INSULIN ASPART PER UNIT SC SCH ×4 (08:21→21:35)
[2022-04-26] MEDS: CYANOCOBALAMIN (B-12) 500 MCG TABLET PO SCH (08:22)
[2022-04-26] MEDS: PANTOprazole 40 MG TAB PO SCH ×2 (08:22→19:57)
[2022-04-26] MEDS: METOPROLOL SUCC 25MG EXT REL TAB PO SCH (08:22)
[2022-04-26] MEDS: VENLAFAXINE HCL XR 37.5 MG CAPXR PO SCH (08:23)
[2022-04-26] MEDS: MULTIVITAMIN TAB PO SCH (08:23)
[2022-04-26] MEDS: APIXABAN 5 MG TABLET PO SCH ×2 (08:23→19:56)
[2022-04-26] MEDS: METOPROLOL SUCC 50MG EXT REL TAB PO SCH (08:23)
[2022-04-26] MEDS: DOCUSATE SODIUM 100 MG CAP PO SCH ×2 (08:23→19:57)
[2022-04-26] MEDS: VENLAFAXINE HCL XR 150 MG CAPXR PO SCH (08:23)
[2022-04-26] MEDS: HYDROmorphone INJ 0.5 MG/0.5 ML SYR IV PRN (09:16)
[2022-04-26] MEDS ORDERED: KETOROLAC 30 MG/ML VIAL IV ONE (10:15)
--- NOTE | 2022-04-26 10:27 | Orthopedic Progress Note ---
Date of Service April 26, 2022 Assessment & Plan (1) Status post total left knee replacement: Plan: POD #2 s/p left TKA pt/ot dvt proph with JAIRO/SCD/Eliquis Toradol added to pain regimen. If her pain control is adequate this afternoon, consider sending the patient home however she may consider staying 1 more day to make sure her pain is under better control. plan for d/c home with HHPT, recheck after PT Admission and Anticipated Discharge Date Admission Date: April 24, 2022 Subjective Postop day 2 Patient sitting in her chair at the bedside. Nursing is currently placing JAIRO hose on her at this time. She complains that she feels that her pain is not controlled as well as her previous knee. She is having some current pain at this time. She is not sure she should go home today secondary to of her pain control. No other complaints at this time. Physical Exam Physical Exam: Jasmeet dressings are clean, dry, and intact. Calves are soft and nontender. Neurovascular intact. Toes are mobile. Hemovac has been removed. Results & Data ([facility]) Vital Signs (Past 12 Hours) Vital Signs Temp Pulse Resp BP Pulse Ox O2 Del Method 04/26/22 07:40 36.7 C 65 15 120/80 97 Room Air Laboratory Results 04/26/22 04/26/22 04/25/22 Range/Units 07:57 07:37 20:46 WBC 10.19 (4.8-10.8) K/ul RBC 4.23 (3.93-5.22) M/uL Hgb 11.1 L (12.0-16.0) g/dl Hct 33.8 L (34.1-44.9) % MCV 79.9 L (80.0-100.0) fL MCH 26.2 (25.0-34.0) pg MCHC 32.8 (32.0-36.0) g/dL RDW Std Deviation 45.0 (36.4-46.3) fL RDW Coeff of Ernesto 15.5 H (11.5-14.5) % Plt Count 250 (130-400) K/uL MPV 10.3 (9.4-12.3) fL POC Glucose 108 H 133 H (70-99) mg/dl 11/17/22 11/17/22 Range/Units 16:58 12:07 WBC (4.8-10.8) K/ul RBC (3.93-5.22) M/uL Hgb (12.0-16.0) g/dl Hct (34.1-44.9) % MCV (80.0-100.0) fL MCH (25.0-34.0) pg MCHC (32.0-36.0) g/dL RDW Std Deviation (36.4-46.3) fL RDW Coeff of Ernesto (11.5-14.5) % Plt Count (130-400) K/uL MPV (9.4-12.3) fL POC Glucose 112 H 170 H (70-99) mg/dl
[2022-04-26] MEDS: KETOROLAC 30 MG/ML VIAL IV SCH ×2 (17:27→22:56)
[2022-04-26] MEDS: SENNA 8.6 MG TAB PO SCH (19:58)
[2022-04-26] MEDS: SIMVASTATIN 20 MG TAB PO SCH (19:58)
[2022-04-27] MEDS: KETOROLAC 30 MG/ML VIAL IV SCH ×2 (05:44→10:04)
[2022-04-27] MEDS: ACETAMINOPHEN 500 MG TAB PO SCH (06:02)
[2022-04-27] MEDS: VENLAFAXINE HCL XR 37.5 MG CAPXR PO SCH (08:27)
[2022-04-27] MEDS: MULTIVITAMIN TAB PO SCH (08:28)
[2022-04-27] MEDS: CYANOCOBALAMIN (B-12) 500 MCG TABLET PO SCH (08:28)
[2022-04-27] MEDS: APIXABAN 5 MG TABLET PO SCH (08:28)
[2022-04-27] MEDS: DOCUSATE SODIUM 100 MG CAP PO SCH (08:28)
[2022-04-27] MEDS: METOPROLOL SUCC 50MG EXT REL TAB PO SCH (08:28)
[2022-04-27] MEDS: VENLAFAXINE HCL XR 150 MG CAPXR PO SCH (08:28)
[2022-04-27] MEDS: PANTOprazole 40 MG TAB PO SCH (08:28)
[2022-04-27] MEDS: METOPROLOL SUCC 25MG EXT REL TAB PO SCH (08:29)
[2022-04-27] MEDS: INSULIN ASPART PER UNIT SC SCH ×2 (08:39→12:16)
--- NOTE | 2022-04-27 10:41 | Orthopedic Progress Note ---
Date of Service April 27, 2022 Assessment & Plan (1) Status post total left knee replacement: Plan: Postop day #3 status post left total knee arthroplasty PT/OT. DVT prophylaxisaspirin 81 mg twice daily, JAIRO stockings for 30 days Pain control-continue oral oxycodone Discharge planningplan for discharge home today. Admission and Anticipated Discharge Date Admission Date: April 24, 2022 Supervising Physician Co-Signing Physician Notes Patient seen and examined. Agree with CESAR Reynoso's note as above. She states she is feeling much better today, and feels ready to go home. Plan for discharge home today. Subjective Postop day 3 Patient states she is doing very well. She feels that the extra day really helped control her pain. Left knee is doing very well and she is ambulating well. Feels she is ready to go home. Physical Exam Constitutional: WD/WN, vitals as above no acute distress Musculoskeletal: Knee: + surgical incision (Anterior left knee with harley dressing in place and functioning); no skin erythema, no ecchymosis and no surgical drain present Skin: no rashes, warm and dry Trauma: no evidence of skin trauma Neurologic: normal touch/pain/proprioception Psychiatric: A+Ox3, euthymic affect Speech: normal rate/rhythm/volume of speech Results & Data ([facility]) Vital Signs (Past 12 Hours) Vital Signs Temp Pulse Resp BP Pulse Ox O2 Del Method 04/27/22 07:43 36.6 C 66 16 121/77 96 Room Air
[2022-04-27] MEDS: oxyCODONE HCL IR 5 MG TAB (IMMEDIATE RELEASE) PO PRN (12:49)
--- NOTE | 2022-04-30 11:46 | Discharge Summary ---
Date of Service April 30, 2022 Admission HPI Per Admitting Provider Kayla is a 51 year old who complains of left knee pain, presents for pre-op evaluation prior to a left total knee replacement by Dr Cordon at [facility]. she complains of pain, stiffness and instability in her left knee. Currently the patient states that the symptoms are moderate-severe and is described as aching, sharp and throbbing. rates her current pain as 6/10. Her symptoms are aggravated by ascending stairs, daily activities, first steps while awake walking. Unable to take NSAIDs since she is on Eliquis. she has been treated with previous cortisone and visco injections in the past without much relief. she has also failed previous trial of physical therapy.Allergies Admission Exam Per Admitting Provider Physical Exam: HT: 5ft 4in WT: 107.6kg Constitutional: WD/WN, vitals as above no acute distress Respiratory: normal respiratory effort, lungs clear to auscultation no respiratory distress, no labored breathing and does not use accessory muscles Cardiovascular: RRR, no murmur, no edema Gastrointestinal (Abdomen): normal bowel sounds, soft, nontender, no hepatosplenomegaly Musculoskeletal: Knee: + knee abnormal to inspection (LEFT KNEE: ), + effusion (+1 effusion), + limited ROM of knee (ROM 0/3/110), + knee ROM with crepitation, + joint line tenderness (medial joint line) and + Ronald's sign positive; no deformity, no skin erythema, no ecchymosis, no valgus laxity, no varus laxity, anterior drawer test negative, Nelson's sign negative and pivot shift test negative Principal Diagnosis Left knee osteoarthritis Discharge Data Allergies Allergy/AdvReac Type Severity Reaction Status Date / Time No Known Allergies Allergy Verified 04/24/22 09:07 Consultations 04/19/22 14:09 Consult Hospitalist Routine Procedures Performed Operation Date: 04/24/22 11:10 Actual Procedures p Left Total Knee Arthroplasty(Left) - Jeffrey Cordon DO Ordered Studies 04/24/22 05:00 US - OR guided needle placemen Routine Hospital Course (1) Status post total left knee replacement: On her first postoperative day, she had initially no complaints that morning. She denies any shortness of breath, chest pain, lightheadedness. Dressings were intact and dry. Neurovascular is intact calves are soft nontender. Vital signs are stable and she was afebrile. She was started on PT and OT protocols and continued on DVT prophylaxis and pain management. Patient developed increased pain over the day and especially after physical therapy she was seen by Dr. Mistry later that day and the patient was sleeping however when awoken she was having moderate pain in the knee. Plans were to keep her for pain control and continue PT and OT protocols. By her second postoperative day, she was sitting in her chair at the bedside. Nursing was putting on her JAIRO hose. She complained that she feels that her pain was still not controlled as well as her previous knee replacement. She felt she was not ready to go home. Pranav dressing was clean, dry, and intact. Calves were soft and nontender. Neurovascular was intact. Hemovac had been removed. Vital signs were stable and she was afebrile. Toradol was added to her pain regimen and plans were to keep her 1 more day for her pain control and continued PT. By her third postoperative day, she was having much better pain control. She felt well and felt ready to go home. Pranav dressing remained intact. Calves are soft nontender neurovascular is intact. She was remaining stable and was felt she be discharged to home. Total Time Total Time Spent Total Time Spent (In Minutes): 10 Discharge Plan Discharge Items Patient Disposition: Home - Home Health Services Reason For Visit: Arthritis of Left Knee Discharge Diagnosis: Arthritis of Left Knee Activity: Per Instructions section Weightbearing Comment: as tolerated with walker Non-emergency contact: Surgeon Call non-emergency contact if: you have any medication questions, your pain is not controlled, your temperature is above 101.5, your wound has increased redness and your wound has increased drainage Follow-up/Referrals: Jeffrey Cordon DO [Surgeon] - (Please follow up with Dr. Cordon in 2 weeks from the day of your surgery for your first post operative visit. ) Washington Garvey [Primary Care Provider] - Diet: Regular Addtl Attending Provider Instructions: ACTIVITY RECOMMENDATIONS: SELF CARE INSTRUCTIONS AFTER TOTAL KNEE REPLACEMENT A. You may need to continue a physical therapy program after discharge from the hospital. There are several options available to you. Your doctor will assist you in selecting the best one for you. 1. An out-patient facility 2 to 3 times a week for therapy or home therapy. 2. Continue working on all exercises taught to you in the hospital. Your goals should be to increase bending of your knee to 90 degrees and beyond and to fully straighten your knee. B. You may progress at your own pace from walking with a walker or crutches to a cane; then to no assistive devices. C. Make walking a part of your daily routine. Be up as much as comfortable with rest periods throughout the day. Rest with leg elevation is very important. Use the ice wrap frequently for the first 3-4 weeks. D. There are no restrictions on activities. You may ride in a car, shop, participate in control engineer and all social activities. E. Wear the long elastic stockings (JAIRO hose) 20 hours a day for 2 weeks after surgery. They can be removed several times a day for laundering and for a bath. F. You may shower, no tub baths until cleared by your doctor. SPECIAL CARE INSTRUCTIONS: VERY IMPORTANT TO READ AND REVIEW A. There are a few signs you need to watch for after you are home. Call [facility] if you notice any of the followin. Increased severe knee pain. Some pain is expected especially when you exercise. 2. Increased swelling in your leg or knee; pain or swelling of the calf muscle in either lower leg. 3. Any fluid drainage from the incision. 4. Shortness of breath or chest pain. B. Please call [facility] at if you have any concerns or questions about your operation or recovery. The doctor or his nurse will return your call promptly. C. You must take antibiotics before dental work, bladder, bowel or other surgery. Your doctor will provide you with a permanent care to carry describing this precaution. IMPORTANT: * REMEMBER TO TAKE ELIQUIS 5MG , TWICE DAILY FOR 4 WEEKS UNLESS OTHERWISE DIRECTED. THIS IS YOUR BLOOD THINNER. * CALL IF INCREASED PAIN, REDNESS, DRAINAGE OR FEVER GREATER THAT 101. * WEAR JAIRO HOSE 20 HOURS PER DAY FOR 2 WEEKS. * PRANAV Dressing - This is a large suction dressing covering your incision. This will help pull any excess drainage from the wound and allow your incision to heal properly. You may shower with this if you can keep the unit outside of the shower. If any bleeding or leakage is noted please call your doctor's office. This will remain on your incision for 7 days and then should be removed. This can be done yourself or by the home nursing staff if applicable. The entire unit is disposable once removed. Once removed, keep incision clean and dry. If redness or drainage is noted, please call your surgeon. . * Once your Pranav Dressing is removed, follow wound care instructions as noted below. * DERMABOND Prineo- This is a mesh tape dressing that is covered with glue. It should remain in place until the incision is properly healed, usually 10-14 days. This dressing is designed to naturally slough off. You may trim the excess mesh tape as it peels off. Incision may be briefly wet in a shower. Dry immediately by blotting with a clean, dry towel. Do not bath or swim until instructed by your doctor. Do not scratch, rub, or pick at the dressing. Do not apply any topical ointments or lotions until dressing is completely removed and/or instructed by your doctor. There may be a small piece of suture material at one end of your incision. Do not pull or trim this. If it is bothersome or catching on clothing, you may cover it with a band-aid. FOLLOW UP VISIT: If appointment is not already scheduled: Please call [facility] to make a follow-up appointment for 2 weeks after your surgery at . Pending Studies at Discharge: No Stand-Alone Forms: [email or web address], Smoking Cessation Medications and DC Order Prescriptions: New acetaminophen [Tylenol Extra Strength] 500 mg Tablet 1,000 mg PO Q8 21 Days Qty: 126 0RF oxycodone 5 mg Tablet 5 - 10 mg PO Q6H PRN (Reason: pain) Qty: 30 0RF Rx Instructions: ongoing therapy, supervising Dr Porfirio Cordon, max 6 tabs in 24 hours docusate sodium 100 mg Capsule 100 mg PO BID 10 Days Qty: 20 0RF cefadroxil 500 mg capsule 500 mg PO BID 14 Days Qty: 28 0RF ferrous sulfate 324 mg (65 mg iron) tablet,delayed release (DR/EC) 324 mg PO Q OTHER DAY Qty: 30 0RF Continued metoprolol succinate 100 mg Tablet Extended Release 24 Hr 100 mg PO QAM venlafaxine 150 mg Capsule,Extended Release 24hr 150 mg PO QAM cyanocobalamin (vitamin B-12) 1,000 mcg Tablet 1,000 mcg PO QAM omeprazole 40 mg Capsule,Delayed Release(Dr/Ec) 40 mg PO BID simvastatin 20 mg Tablet 20 mg PO HS lisinopril 10 mg Tablet 10 mg PO QAM metoprolol succinate 25 mg Tablet Extended Release 24 Hr 25 mg PO QAM venlafaxine 37.5 mg Tablet Extended Release 24hr 37.5 mg PO QAM Eliquis 5 mg Tablet 5 mg PO BID hydroxyzine HCl 25 mg Tablet 25 - 50 mg PO HS PRN (Reason: Sleep) polyethylene glycol 3350 [Miralax] 17 gram powder in packet 17 g PO QAM PRN (Reason: constipation) Discharge Orders: Discharge Order (Routine); Ordered 04/27/22 Ordered By: Daniel Reynoso Admission Data Admit Date/Time: 04/24/22 13:59 Attending Provider: Jeffrey Cordon Admit Provider: Jeffrey Cordon Primary Care Provider: Washington Garvey Other Interventions: Discharge Summary Assessment (RN) Last Done: 04/27/22 12:23
== END 2022-04-27 13:23 | disposition home health service (06) ==
LOC: ASU 08:37 → PACUINP 08:37 → 3E 15:32
DX: Z79.01 Long term (current) use of anticoagulants; Z68.41 Body mass index [BMI] 40.0-44.9, adult; Z79.899 Other long term (current) drug therapy; M17.12 Unilateral primary osteoarthritis, left knee; E66.9 Obesity, unspecified; F17.210 Nicotine dependence, cigarettes, uncomplicated